=== PATIENT | male | born 1945 | race Caucasian/White ===

== ENCOUNTER → 2017-04-29 | Outpatient (CLI) | payer OTHER ==
[~2017-04-29] MED LIST: ACC/20 PO; ALLO300T2 PO; AMIT25TA19 PO; ATV/1 PO; AZEL30SP NAE; CARTIA XT 180 MG PO; HYDR25TA4 PO; INSU100I17 SC; INSUINJ SC; IRBE-43 PO; METO25TA3 PO; RAPAFLO 8 MG PO; ROSU20TA PO; TAMS0.4C59 PO
[2017-04-29 12:26] LABS: BASO % 0.8 %; BASO ABS # 0.04 K/uL (0-0.2); COMPLETE YES; EOS % 4.2 %; HEMATOCRIT 42.5 % (42-52); IG% 0.2 %; LYMPH % 18.8 %; MEAN CELL VOLUME 91.6 fL (80-100); MEAN CORPUSCULAR HEMOGLOBIN 32.3 pg (25-34); MEAN CORPUSCULAR HGB CONC 35.3 g/dl (32-36); MEAN PLATELET VOLUME 9.7 fL (7.4-10.4); MONO % 11.3 %; NEUT % 64.7 %; PLATELET COUNT 193 K/uL (130-400); RED BLOOD COUNT 4.64 M/uL (4.7-6.1); WHITE BLOOD COUNT 4.78 K/uL (4.8-10.8)
[2017-04-29 13:21] LABS: ESTIMATED AVERAGE GLUCOSE 120 mg/dl; HA1C FLAG Normal (Normal)
[2017-04-29 13:27] LABS: ALT/SGPT 37 U/L (12-78); AST/SGOT 31 U/L (15-37); BLOOD UREA NITROGEN 15 mg/dl (7-18); BUN/CREATININE RATIO 19.3 (10-20); CARBON DIOXIDE 27 mmol/L (21-32); CHLORIDE 96 mmol/L (98-107); CHOLESTEROL 153 mg/dl (0-200); CREATININE 0.76 mg/dl (0.60-1.40); GLUCOSE 132 mg/dl (70-99); SODIUM 133 mmol/L (136-145); TRIGLYCERIDES 149 mg/dl (0-150); VERY LOW DENSITY LIPOPROT CALC 30 mg/dl
[2017-04-29 13:34] LABS: CALCIUM 10.1 mg/dl (8.5-10.1); CHOLESTEROL/HDL RATIO 3.6; HDL CHOLESTEROL 42 mg/dl; LDL CHOLESTEROL CALCULATED 81 mg/dl
[2017-04-29 15:06] LABS: MANUAL MICROSCOPIC REQUIRED? NO; REVIEW REQ? NO; URINE APPEARANCE CLEAR (CLEAR); URINE BILIRUBIN NEG (NEG); URINE COLOR YELLOW; URINE EPITHELIAL CELL AUTO 0-5 /lpf (0-5); URINE NITRITE NEG (NEG); URINE SPECIFIC GRAVITY 1.017 (1.000-1.030); UROBILINOGEN NEG (NEG)
[2017-04-29 15:43] LABS: RATIO 406.7 mcg/mg (0-30.0)
--- NOTE | 2017-05-05 12:40 | CODING QUERY MEDICAL NECESSITY ---
SUPPORTING DIAGNOSIS NEEDED Dr. Dorsey, A supporting diagnosis is required for the test/procedure performed on this patient in order for us to be reimbursed by the patient's insurance. Please provide a supporting diagnosis for the following test/procedure listed below next to the test name along with your signature. *If there is no additional diagnosis for this patient that would support the following test/procedure please document that below next to the test/procedure. Test(s)/Procedure(s) that require a supporting diagnosis: * [id number] GLYCATED HEMOGLOBIN DIAGNOSIS: DATE OF SERVICE: 04/29/17 Provider Signature: Date: Thank you Reyes Javier [facility] Information Management Once completed, please kindly fax back to [phone] For questions please call [phone]
== END | disposition home or self-care (01) ==
LOC: C.LAB1850 09:34
PROVIDERS: ATTEND Internal Medicine
DX: I10 Essential (primary) hypertension (principal); E11.9 Type 2 diabetes mellitus without complications

== ENCOUNTER → 2017-07-30 | Outpatient (CLI) | payer OTHER ==
[2017-07-30 12:26] LABS: ESTIMATED AVERAGE GLUCOSE 126 mg/dl; HA1C FLAG Normal (Normal)
--- NOTE | 2017-08-11 11:40 | CODING QUERY MEDICAL NECESSITY ---
CQSUPPORTING DIAGNOSIS NEEDED A supporting diagnosis is required for the test/procedure performed on this patient in order for us to be reimbursed by the patient's insurance. Please provide a supporting diagnosis for the following test/procedure listed below next to the test name along with your signature. *If there is no additional diagnosis for this patient that would support the following test/procedure please document that below next to the test/procedure. Test(s)/Procedure(s) that require a supporting diagnosis: DOS 07/30/17 GLYCATED HEMOGLOBIN TEST Provider Signature: Date: Thank you Julia [facility] Information Management Once completed, please kindly fax back to [phone] For questions please call [phone]
== END | disposition home or self-care (01) ==
LOC: C.LAB1850 10:13
PROVIDERS: ATTEND Internal Medicine
DX: E78.5 Hyperlipidemia, unspecified (principal)

== ENCOUNTER → 2017-10-31 | Outpatient (CLI) | payer OTHER ==
[2017-10-31 09:38] LABS: BASO % 0.8 %; BASO ABS # 0.04 K/uL (0-0.2); COMPLETE YES; EOS % 2.8 %; HEMATOCRIT 43.3 % (42-52); IG% 0.2 %; LYMPH % 20.8 %; LYMPH ABS # 0.98 K/uL (1.2-3.4); MEAN CELL VOLUME 93.1 fL (80-100); MEAN CORPUSCULAR HEMOGLOBIN 31.4 pg (25-34); MEAN CORPUSCULAR HGB CONC 33.7 g/dl (32-36); MEAN PLATELET VOLUME 9.6 fL (7.4-10.4); MONO % 11.3 %; NEUT % 64.1 %; PLATELET COUNT 227 K/uL (130-400); RED BLOOD COUNT 4.65 M/uL (4.7-6.1); WHITE BLOOD COUNT 4.71 K/uL (4.8-10.8)
[2017-10-31 09:45] LABS: ALT/SGPT 42 U/L (12-78); AST/SGOT 25 U/L (15-37); BLOOD UREA NITROGEN 17 mg/dl (7-18); BUN/CREATININE RATIO 22.1 (10-20); CALCIUM 9.4 mg/dl (8.5-10.1); CARBON DIOXIDE 30 mmol/L (21-32); CHLORIDE 95 mmol/L (98-107); CREATININE 0.76 mg/dl (0.60-1.40); GLUCOSE 160 mg/dl (70-99); SODIUM 129 mmol/L (136-145)
[2017-10-31 09:50] LABS: CHOLESTEROL 151 mg/dl (0-200); CHOLESTEROL/HDL RATIO 3.9; HDL CHOLESTEROL 39 mg/dl; LDL CHOLESTEROL CALCULATED 58 mg/dl; TRIGLYCERIDES 271 mg/dl (0-150); VERY LOW DENSITY LIPOPROT CALC 54 mg/dl
[2017-10-31 10:00] LABS: ESTIMATED AVERAGE GLUCOSE 123 mg/dl; HA1C FLAG Normal (Normal)
[2017-10-31 10:05] LABS: CREATININE RANDOM URINE 78.2 mg/dl
== END | disposition home or self-care (01) ==
LOC: C.LAB1850 07:24
PROVIDERS: ATTEND Internal Medicine
DX: I10 Essential (primary) hypertension (principal)

== ENCOUNTER 2024-06-06 07:45 | Inpatient (IN) ==
--- NOTE | 2024-06-06 08:23 | Emergency Department Note ---
Impression & Plan Fall, Atrial fibrillation with rapid ventricular response, Acute UTI, Weakness, Closed compression fracture of L4 vertebra ED Provider Note Provider: Dirk Gary MD DATE OF SERVICE: 06/06/2024 CHIEF COMPLAINT: Fall, left hip and back pain HISTORY OF PRESENT ILLNESS: Patient is a 78-year-old gentleman past medical history of aortic stenosis, CHF, atrial fibrillation, bladder stones, lymphoma/MGRS presenting here today after a fall this morning. States he went up to use the bathroom and the handle of his walker fell off and he fell to the ground landing more in his left buttock. Laid on the ground for about an hour and a half until his woke and found him. Patient denies loss of conscious. Is on Eliquis. Did have a Glucerna and take his morning medicines and come here via ambulance for pain worsened in his left hip and back although he has have some chronic issues here. Denies significant headache or chest pain. Denies significant nausea. Maybe a little bit of left lower abdominal pain when he touches the area. Denies significant injury to the right arm or the left lower leg. Denies significant arm injury. States he did feel little bit short of breath when the pain was bad. Has been feeling weak for approximate the past week. Denies any palpitations or chest pain. PAST MEDICAL HISTORY: As noted above MEDICATIONS: Reviewed home medications SOCIAL HISTORY: PHYSICAL EXAM: GENERAL: alert and oriented in no acute distress on stretcher Head: Atraumatic with a little bit of slight erythema surrounding the left eye. EYES: No injection, discharge or icterus. PERRL, EOMI. NECK: Trachea midline. Supple without significant midline tenderness ENT: Mucous membranes pink and moist. LUNGS: Airway patent. No retractions. Breath sounds clear with good air entry bilaterally. HEART: Tachycardic irregular regular rate and rhythm. No chest wall tenderness ABDOMEN: Soft without guarding with some mild tenderness to the left lower quadrant and radiation of the left flank. SKIN: Acyanotic, warm, dry, without rashes EXTREMITIES: Trace to 1+ bilateral lower extremity edema without significant wounds. Some healing contusions and old abrasions on the upper arms bilaterally. Able to move his extremities fairly fully though little bit of pain with full flexion of the left hip. NEUROLOGICAL: Moves all extremities no aphasia. No facial droop or slurred speech. Normal strength and tone in the extremities. Sensation to gross touch normal. EK from atrial fibrillation with rapid ventricular response. Some lateral T wave inversions with a QTc of 468. No clear acute ST segment elevation or significant ST depression with some artifact. CONTINUOUS CARDIAC MONITORING: was ordered and showed a heart rate of 100s-150s bpm in atrial fibrillation later with A-fib and occasional PVCs 70s to 90s GCS 15. Patient's laboratory studies and imaging reviewed. Differential includes Fracture, dislocation, contusion, intra-abdominal, pneumothorax, intrathoracic, intracranial, neurologic, compartment syndrome, rhabdomyolysis, infectious etiology, cardiac etiology, as well as other pathologies. IMPRESSION/MEDICAL DECISION MAKING: Patient seen with suffered a mechanical type fall today. No LOC but on Eliquis. Having some pain worsened to the left hip and lower quadrant and back region but has some chronic here. History of bladder stones reported but denies significant urinary issues. Week of generalized weakness may have contributed somewhat. In rapid A-fib but did take his morning medicines include metoprolol. Was previously longtime on Cardizem but stopped this recently. In review of prior PCP and nephrology notes it appears the patient has been losing weight for some time. Given the fact he was on the floor CK was checked to exclude rhabdomyolysis. No concerning findings at this time for compartment syndrome on exam. Doubt dislocation. Given the anticoagulation CT scans of the head, cervical spine, chest abdomen pelvis were evaluated to look for occult bleeding or bony injury. Given the fairly good range of motion he has of the hip I doubt fracture here. Blood work returns with an elevated lactate at 3.4 and 500 cc of IV fluid was given for some hydration with some questionable hypertension although the blood pressure drops having a hard time with his A-fib obtaining a value. My blood pressure was 122 over palp. Cautiously given this amount of fluid but trying to avoid significant fluid boluses given his heart failure history. Received a gram of magnesium to help with heart rate control with his A-fib which this along with some pain control with fentanyl was effective in improving heart rates generally. Chest x-ray with a small unchanged left pleural effusion per radiology. Mild leukocytosis 12 is noted. Cultures ordered. CTs per radiology of the without obvious acute intracranial abnormality or cervical spine injury. CT chest per radiology compared to prior from 10 days ago with small right and moderate left pleural effusion with some body wall edema. No traumatic injuries are noted in the report. CT abdomen pelvis does show an acute to subacute L4 compression fracture although this was previously noted on the CT on May 27. No obvious significant intra-abdominal bleeding is noted or acute injury. No new lymphadenopathy is noted on imaging reports. Report indicates no retroperitoneal hematoma. Additional blood work returns with hyponatremia 128 which seems fairly chronic as well as stable creatinine of 0.5. No evidence of significant acute renal dysfunction and a normal CK lowering suspicion for rhabdomyolysis. Troponin of 34.5 without priors for comparison unsure if this is chronic or new. Could be a little demand from tachycardia. Leukocytosis 12.4 as noted and blood cultures were added. Does have history of bladder stones well that could be at play as far as a possible infectious source. Ordaz catheter placed reviewed prior microbiology from the urine. Given a dose of Zosyn. Discussed with patient and family findings. Blood pressure cuff appears to been on the wrong setting and blood pressures improved upon appropriate adult settings being used. He is too weak to ambulate and suffered a fall today and given his discomfort as well as concerns for infection he was agreeable to stay in the hospital and hospitalist team was contacted. Repeat troponin stable like this more chronic. Procalcitonin returns undetectably low lower suspicion for systemic sepsis some do question if this could be more related to just heart failure. DIAGNOSIS: Fall, A-fib RVR, L4 compression fracture, acute UTI, weakness DISPOSITION: Hospitalist will evaluate Patient was agreeable with this plan. Critical Care I have personally spent 65 minutes of critical care time in the direct management of this patient. This includes bedside care, interpretation of diagnostic studies, and testing, discussion with consultants, patient, and family members, and other required patient management activities. These 65 minutes is in excess of all separately billable procedures. 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 large B cell lymphoma in remission s/p RCHOP 2019 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-sided sciatica Pain of left sacroiliac joint Scoliosis Back pain 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 Hematuria, gross Permanent atrial fibrillation Encounter for pre-operative examination Anxiety Bladder stones H/O prostate cancer S/p brachytherapy Acquired deviated nasal septum BPH (benign prostatic hyperplasia) Diabetes mellitus Well controlled and stable Disc degeneration, lumbar Dyslipidemia Hearing loss Hypertension Hypertrophy of nasal turbinates Idiopathic gout Increased urinary frequency Insomnia Nocturia Nonocclusive coronary atherosclerosis of [place] coronary artery Obstructive sleep apnea Organic impotence Palpitations Premature ventricular contractions Proteinuria Slowing of urinary stream Medical History (Updated 06/06/24 @ 12:05 by Dirk Gary M.D.) Scoliosis PVCs (premature ventricular contractions) hx-f/u dr. 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) Follows with [facility] Chronic combined systolic and diastolic CHF (congestive heart failure) EF 34% on 05/23/20 nuclear stress test EF 45-50% on 06/23/20 ECHO EF 35-40% February 2024 per 03/2024 cardio records Nonsustained paroxysmal ventricular tachycardia Dec 2019 per [facility] records - no recurrence Insomnia Hx of gout Hypertension History of prostate cancer dx 2003, S/p brachytherapy Dyslipidemia Disc degeneration, lumbar Diffuse large B cell lymphoma in remission s/p RCHOP 2018 Diabetes mellitus BPH (benign prostatic hyperplasia) History of atrial fibrillation currently on eliquis; f/u dr. zaarte Aortic stenosis Mild to moderate per 04/16/24 cardio records Anxiety Bladder stones Poor historian now doing interviews Hearing deficit hearing aids bilat. History of anesthesia reaction WOKE UP VIOLENT AFTER LAST PROCEDURE (PROSTATE SEEDS) PT CAN'T RECALL SPECIFIC DETAILS BUT WAS TOLD THIS Chronic back pain Sleep apnea has had 2 conflicting sleep studies, most recent stated "he does not have" Surgical History History of urologic surgery cystolithopaxy History of cardiac cath 2018, fatigue/tiredness, [facility] in [place], no stents; f/u dr. zarate History of arthroscopy right knee History of colonoscopy History of tooth extraction History of tonsillectomy Family History Father Diabetes Myocardial infarction Denies family history of Ovarian cancer Prostate cancer Breast cancer Colorectal cancer Social History Smoking Status: Never smoker Second Hand Exposure: Yes (hx as child); Do You Dip or Chew Tobacco: No; Hx Alcohol Use: No Hx Substance Use: No Preferred Language: Spanish Communication Ability: Effective Relays Draftsperson Required: No Beliefs That Will Affect Care: None marital status: Current Living Situation: Spouse current occupational status: retired Feels Safe at Home: Yes Childhood Exposure to Second-Hand Smoke: No Dental Care, Regularly: Yes Physical Activity Frequency: 1-2 Times per Week Seatbelt Use: always Sunscreen Use: Yes Assistive Devices: Hearing Aid - Bilateral and Walker Allergies Allergies Allergy/AdvReac Type Severity Reaction Status Date / Time NSAIDS (Non-Steroidal AdvReac Intermediate Interacts Verified 05/31/24 13:43 Anti-Inflamma with other meds Home Meds Home Medications Medication Instructions Recorded Confirmed insulin syr/ndl U100 half juliocesar 0.3 #100 ea 06/15/19 05/27/24 mL 31 gauge x 5/16" (BD Insulin Syringe Ultra-Fine (half unit)) pen needle, diabetic 31 gauge x #30 ea 06/15/19 05/27/24 5/16" (BD Ultra-Fine Short Pen Needle) dapagliflozin propanediol 10 mg 10 mg PO QAM 05/09/22 06/06/24 tablet (Farxiga) solifenacin 10 mg tablet 10 mg PO QAM 05/09/22 06/06/24 irbesartan 150 mg tablet (Avapro) 150 mg PO HS 11/05/23 06/06/24 metformin 1,000 mg tablet 1,000 mg PO BID 03/31/24 06/06/24 rosuvastatin 40 mg tablet (Crestor) 40 mg PO QPM 04/29/24 06/06/24 silodosin 8 mg capsule 8 mg PO QAM Urinary Retention 04/29/24 06/06/24 blood sugar diagnostic (FreeStyle 06/06/24 Test strips) Previous Rx's Medication Instructions Recorded apixaban 5 mg tablet (Eliquis) 5 mg PO BID #180 tabs 05/23/21 lorazepam 1 mg tablet 1 mg PO BID PRN Anxiety #60 tabs 05/23/22 allopurinol 300 mg tablet 300 mg PO QAM #90 tabs 03/06/23 furosemide 40 mg tablet 40 mg PO Q OTHER DAY PRN edema #45 11/05/23 tabs oxycodone 5 mg tablet 5 mg PO DAILY PRN severe pain #30 05/12/24 tabs metoprolol succinate 50 mg 100 mg (2 x 50 mg) PO DAILY #90 05/31/24 tablet,extended release 24 hr tabs Results & Data (ED) Vital Signs Vital Signs - 24 hr 06/06/24 07:50 06/06/24 08:00 06/06/24 08:15 Temperature 36.7 C Temperature Source Oral Pulse Rate 110 H 119 H Pulse Rate [Apical] Respiratory Rate 18 Respiratory Effort / Characteristics Non-Labored Respiratory Depth Normal Respiratory Pattern Regular Blood Pressure [Left Arm] 80/64 L Blood Pressure Mean [Left Arm] 69 Pulse Oximetry 98 Oxygen Delivery Method Room Air Sepsis Recent Fever Within 48 Hours No Sepsis New/Unexplained Change in Mental Status No Sepsis Action Taken by Nursing No Action Required 06/06/24 11:02 Temperature Temperature Source Pulse Rate Pulse Rate [Apical] 115 H Respiratory Rate 18 Respiratory Effort / Characteristics Non-Labored Respiratory Depth Normal Respiratory Pattern Regular Blood Pressure [Left Arm] 118/100 Blood Pressure Mean [Left Arm] 106 Pulse Oximetry 95 Oxygen Delivery Method Room Air Sepsis Recent Fever Within 48 Hours Sepsis New/Unexplained Change in Mental Status Sepsis Action Taken by Nursing Laboratory Data 06/06/24 08:40 06/06/24 08:40 Lab Results 06/06/24 06/06/24 06/06/24 Range/Units 08:32 08:40 09:45 WBC 12.46 H (4.8-10.8) K/ul RBC 4.93 (4.70-6.10) M/uL Hgb 16.6 (14.0-18.0) g/dl POC Hgb 18.0 (14.0-18.0) g/dl Hct 48.9 (42.0-52.0) % POC Hct 53 H (42-52) % MCV 99.2 (80.0-100.0) fL MCH 33.7 (25.0-34.0) pg MCHC 33.9 (32.0-36.0) g/dL RDW Std Deviation 52.9 H (36.4-46.3) fL RDW Coeff of Golden 14.6 H (11.5-14.5) % Plt Count 224 (130-400) K/uL MPV 9.9 (9.4-12.4) fL Immature Gran % (Auto) 0.6 % Neut % (Auto) 90.4 % Lymph % (Auto) 4.1 % [place] % (Auto) 4.6 % Eos % (Auto) 0.1 % Baso % (Auto) 0.2 % Neut # (Auto) 11.28 H (1.40-6.50) K/uL Lymph # (Auto) 0.51 L (1.20-3.40) K/uL [place] # (Auto) 0.57 (0.11-0.59) K/uL Eos # (Auto) 0.01 (0.00-0.50) K/uL Baso # (Auto) 0.02 (0.00-0.20) K/uL Immature Gran # (Auto) 0.07 (0.01-0.20) K/uL RBC Morphology Unremarkable PT (9.0-12.0) Seconds INR (0.9-1.1) POC Sodium 130 L (135-144) mmol/L Sodium 128 L (136-145) mmol/L POC Potassium 4.2 (3.3-5.0) mmol/L Potassium 4.3 (3.5-5.1) mmol/L POC Chloride 96 L (101-112) mmol/L Chloride 97 L (98-107) mmol/L Carbon Dioxide 22 (21-32) mmol/L POC Total CO2 23 L (24-31) mmol/L Anion Gap 9 (3-11) POC Anion Gap 17.0 (16-25) mmol/L POC BUN 19 H (7-18) mg/dl BUN 18 (6-23) mg/dl Creatinine 0.58 L (0.6-1.4) mg/dl POC Creatinine 0.6 (0.6-1.3) mg/dl Est Cr Clr Drug Dosing 137.5 ml/min Est GFR ( Amer) 112.4 ml/min Est GFR (Non-Af Amer) 97.0 ml/min BUN/Creatinine Ratio 31.0 H (10-20) Glucose 216 H (70-99(Fasting)) mg/dl POC Glucose (other) 211 H (70-99) mg/dl Lactate 3.4 H* (0.4-2.0) mmol/L Calcium 9.7 (8.6-10.3) mg/dl POC Ioniz Calcium Toribio 1.22 (1.12-1.32) mmol/l Magnesium 1.7 (1.7-2.4) mg/dl Total Bilirubin 1.4 H (0.2-1.0) mg/dl AST 39 (13-39) U/L ALT 37 (7-52) U/L Alkaline Phosphatase 152 H (34-104) U/L Total Creatine Kinase 49 (30-223) U/L Troponin I High Sens 34.5 H (0-20) pg/ml Total Protein 6.4 (6.0-8.3) gm/dl Albumin 3.7 (3.4-5.0) gm/dl Globulin 2.7 (2.5-4.0) gm/dl Albumin/Globulin Ratio 1.4 (0.9-2) Procalcitonin Cancelled < 0.02 Urine Color Urine Appearance (Clear) Urine pH (4.5-7.5) Ur Specific Organ (1.000-1.030) Urine Protein (Negative) Urine Glucose (UA) (Negative) Urine Ketones (Negative) Urine Blood (Negative) Urine Nitrite (Negative) Urine Bilirubin (Negative) Urine Urobilinogen (Negative) Ur Leukocyte Esterase (Negative) Urine WBC (Auto) (0-5) /hpf Urine RBC (Auto) (0-2) /hpf U Hyaline Cast (Auto) (0-2) /lpf U Epithel Cells (Auto) (0-2) /hpf Urine Bacteria (Auto) (None Seen) 06/06/24 06/06/24 06/06/24 Range/Units 09:46 09:49 10:49 WBC (4.8-10.8) K/ul RBC (4.70-6.10) M/uL Hgb (14.0-18.0) g/dl POC Hgb (14.0-18.0) g/dl Hct (42.0-52.0) % POC Hct (42-52) % MCV (80.0-100.0) fL MCH (25.0-34.0) pg MCHC (32.0-36.0) g/dL RDW Std Deviation (36.4-46.3) fL RDW Coeff of Golden (11.5-14.5) % Plt Count (130-400) K/uL MPV (9.4-12.4) fL Immature Gran % (Auto) % Neut % (Auto) % Lymph % (Auto) % [place] % (Auto) % Eos % (Auto) % Baso % (Auto) % Neut # (Auto) (1.40-6.50) K/uL Lymph # (Auto) (1.20-3.40) K/uL [place] # (Auto) (0.11-0.59) K/uL Eos # (Auto) (0.00-0.50) K/uL Baso # (Auto) (0.00-0.20) K/uL Immature Gran # (Auto) (0.01-0.20) K/uL RBC Morphology PT 14.4 H (9.0-12.0) Seconds INR 1.4 H (0.9-1.1) POC Sodium (135-144) mmol/L Sodium (136-145) mmol/L POC Potassium (3.3-5.0) mmol/L Potassium (3.5-5.1) mmol/L POC Chloride (101-112) mmol/L Chloride (98-107) mmol/L Carbon Dioxide (21-32) mmol/L POC Total CO2 (24-31) mmol/L Anion Gap (3-11) POC Anion Gap (16-25) mmol/L POC BUN (7-18) mg/dl BUN (6-23) mg/dl Creatinine (0.6-1.4) mg/dl POC Creatinine (0.6-1.3) mg/dl Est Cr Clr Drug Dosing ml/min Est GFR ( Amer) ml/min Est GFR (Non-Af Amer) ml/min BUN/Creatinine Ratio (10-20) Glucose (70-99(Fasting)) mg/dl POC Glucose (other) (70-99) mg/dl Lactate (0.4-2.0) mmol/L Calcium (8.6-10.3) mg/dl POC Ioniz Calcium Toribio (1.12-1.32) mmol/l Magnesium (1.7-2.4) mg/dl Total Bilirubin (0.2-1.0) mg/dl AST (13-39) U/L ALT (7-52) U/L Alkaline Phosphatase (34-104) U/L Total Creatine Kinase (30-223) U/L Troponin I High Sens 34.5 H (0-20) pg/ml Total Protein (6.0-8.3) gm/dl Albumin (3.4-5.0) gm/dl Globulin (2.5-4.0) gm/dl Albumin/Globulin Ratio (0.9-2) Procalcitonin Urine Color Yellow Urine Appearance Cloudy A (Clear) Urine pH 6.0 (4.5-7.5) Ur Specific Organ 1.041 H (1.000-1.030) Urine Protein 2+ H (Negative) Urine Glucose (UA) 3+ H (Negative) Urine Ketones Negative (Negative) Urine Blood 3+ H (Negative) Urine Nitrite Negative (Negative) Urine Bilirubin Negative (Negative) Urine Urobilinogen Negative (Negative) Ur Leukocyte Esterase 1+ H (Negative) Urine WBC (Auto) >50 H (0-5) /hpf Urine RBC (Auto) >20 H (0-2) /hpf U Hyaline Cast (Auto) 3-5 H (0-2) /lpf U Epithel Cells (Auto) 0-2 (0-2) /hpf Urine Bacteria (Auto) None Seen (None Seen) Administered Medications Discontinued Medications Fentanyl Citrate (Fentanyl Citrate Pf 100 Mcg/2 Ml Vial) 25 mcg IV NOW STA Stop: 06/06/24 08:24 Last Admin: 06/06/24 08:27 Dose: 25 mcg Documented By: BILL Fentanyl Citrate (Fentanyl Citrate Pf 100 Mcg/2 Ml Vial) 25 mcg IV NOW STA Stop: 06/06/24 09:54 Last Admin: 06/06/24 10:21 Dose: 25 mcg Documented By: BILL Sodium Chloride (Nss) 500 mls @ 999 mls/hr IV .Q31M [facility] Stop: 06/06/24 09:00 Last Infusion: 06/06/24 10:07 Dose: Infused Documented By: Admin: 06/06/24 08:27 Dose: 999 mls/hr Documented By: BILL Magnesium Sulfate/Dextrose (Magnesium Sulfate / D5w) 1 gm in 100 mls @ 400 mls/hr IV Q15M [facility] Stop: 06/06/24 08:37 Last Infusion: 06/06/24 08:47 Dose: Infused Documented By: Admin: 06/06/24 08:27 Dose: 400 mls/hr Documented By: BILL Ioversol (Optiray 320 100ml) 94 ml IV ONCE ONE Stop: 06/06/24 08:50 Last Admin: 06/06/24 08:50 Dose: 94 ml Documented By: ARTUR Imaging Data Radiologist's Impression: Chest X-Ray 06/06/24 08:18 XR chest 1V portable HISTORY: fall, weak COMPARISON: Chest 04/23/2024. Chest CT 05/27/2024. FINDINGS: The cardiac silhouette is mildly enlarged. No pneumothorax. There are old left-sided rib fractures. Small left pleural effusion and left basilar densities persist. No new focal lung consolidations. No evidence for pulmonary edema. IMPRESSION: No change in the small left pleural effusion and left basilar densities. ACT 112: Negative or not required by law. Electronically signed by: Mando Cortez M.D. 06/06/2024 8:50 AM Abdomen/Pelvis CT 06/06/24 08:[address] WITH IV CONTRAST CT DOSE: HISTORY: fall, weak, eliquis, L hip abd back pain TECHNIQUE: Multiaxial CT images of the abdomen and pelvis were performed following the use of intravenous contrast. A dose lowering technique was utilized adhering to the principles of ALARA. COMPARISON STUDY: Abdomen and pelvis CT 05/27/2024. FINDINGS: Small right and moderate left pleural effusions have increased in size and are better appreciated on the same day chest CT. The heart remains enlarged. No new no pneumoperitoneum. No pneumatosis. There is an acute to subacute mild superior endplate compression fracture at L4 demonstrating up to 10% loss of height. This was present on the prior study. This accounts for the mild paravertebral edema at this level. There are old bilateral rib fractures again noted. Diffuse body wall edema has progressed. Cirrhotic liver again noted. Cholelithiasis. The spleen is normal in size. The adrenal glands and pancreas are unremarkable. Scattered subcentimeter bilateral renal hypodense lesions again noted. These are technically too small to characterize but remain stable and therefore favors cysts. Left-sided nephrolithiasis. No ureteral stones. No hydronephrosis. There is a 4 mm stone within the bladder. No bladder wall thickening. Multiple brachytherapy seeds again noted within the prostate gland. Trace ascites is present. The main portal vein is patent. Calcified plaque within the abdominal aorta which measures up to 3.3 cm in diameter. This remains unchanged. Mild retroperitoneal lymphadenopathy remains stable. No new or progressive lymphadenopathy identified. Moderate perinephric edema again noted. There is mild diffuse mesenteric edema. Colonic diverticulosis. No evidence for acute diverticulitis. No bowel wall thickening or obstruction. Normal appendix. No retroperitoneal hematoma. IMPRESSION: 1. Increase in size in the small right and moderate left pleural effusions. 2. There is an acute to subacute mild superior endplate compression fracture at L4. This was present on the prior study. 3. Otherwise, no acute process within the abdomen or pelvis. 4. Diffuse body wall edema has progressed. 5. Cirrhotic liver again noted. 6. Cholelithiasis. 7. Left-sided nephrolithiasis. 8. A small bladder stone is new from the prior study. 9. Stable mild retroperitoneal lymphadenopathy. 10. Additional findings as described above. ACT 112: Negative or not required by law. Electronically signed by: Mando Cortez M.D. 06/06/2024 9:[address] 06/06/24 08:[address] DOSE: 3401.22 mGy.cm HISTORY: fall, weak, eliquis TECHNIQUE: Multiaxial CT images of the cervical spine were performed and reformatted in the sagittal and coronal plane without the use of contrast. A dose lowering technique was utilized adhering to the principles of ALARA. COMPARISON: None. FINDINGS: No fractures. No subluxation. Prevertebral soft tissues and the C1-C2 interval are intact. No pneumothorax. IMPRESSION: No fractures within the cervical spine. ACT 112: Negative or not required by law. Electronically signed by: Mando Cortez M.D. 06/06/2024 9:[address] 06/06/24 08:[address] WITH CONTRAST CT DOSE: HISTORY: fall, weak, eliquis TECHNIQUE: Multiaxial CT images of the chest were performed following the intravenous administration of contrast. A dose lowering technique was utilized adhering to the principles of ALARA. COMPARISON: Chest CT 05/27/2024. FINDINGS: Moderate body wall edema has progressed. The abdominal structures will be reported separately. Increase in size in the now small right and moderate left pleural effusions. No pericardial effusion. The heart remains mildly enlarged. No mediastinal or hilar lymphadenopathy. Normal esophagus. Mild calcified plaque within the normal caliber thoracic aorta. No evidence for an aortic dissection. Severe coronary artery calcifications are again noted. The central pulmonary arteries are patent. There are old bilateral rib fractures. No acute fractures within the chest. The central airways are patent. No pneumothorax. Mild dependent changes seen within the lung bases. No new focal lung consolidations to suggest a pneumonia. Cholelithiasis and left-sided nephrolithiasis again noted. Chronic compression deformity at L1 again noted. There is a new 9 mm nodular density within the right upper lobe on image 89. This favors a small focus of inflammatory/infectious change. IMPRESSION: 1. Increase in size in the now small right and moderate left pleural effusions. 2. Diffuse body wall edema has also progressed. 3. Stable cardiomegaly. 4. There is a new 9 mm nodular density within the right upper lobe. This favors a small focus of inflammatory/infectious change. 5. No acute traumatic process within the chest. 6. The abdominal structures will be reported separately. ACT 112: Negative or not required by law. Electronically signed by: Mando Cortez M.D. 06/06/2024 9:[address] 06/06/24 08:[address] DOSE: HISTORY: fall, weak, eliquis TECHNIQUE: Multiaxial CT images of the head were performed without the use of intravenous contrast. Automated exposure control was utilized for this study. A dose lowering technique was utilized adhering to the principles of ALARA. Comparison: Head CT 11/12/2012. Findings: The paranasal sinuses and mastoid air cells are clear. The calvarium and skull base are intact. There is no mass, hematoma, midline shift, acute infarct. White matter hypodensity is nonspecific but suggestive of microvascular ischemic change. The ventricles and sulci demonstrate mild age-related involutional changes. Motion artifact. Impression: Motion artifact. No definite acute intracranial abnormality. ACT 112: Negative or not required by law. Electronically signed by: Mando Cortez M.D. 06/06/2024 9:12 AM Discharge Plan Visit Data Chief Complaint: Fall Stated Complaint: FALL, BACK & HIP PAIN ED Provider: Dirk Gary Discharge Problem: Fall, Atrial fibrillation with rapid ventricular response, Acute UTI, Weakness, Closed compression fracture of L4 vertebra Patient Disposition: Being Evaluated by Hospitalist Forms Stand Alone Forms: My [facility] Prescriptions Prescriptions: No Action Eliquis 5 mg tablet 5 mg PO BID Qty: 180 3RF lorazepam 1 mg tablet 1 mg PO BID PRN (Reason: Anxiety) Qty: 60 0RF allopurinol 300 mg tablet 300 mg PO QAM Qty: 90 1RF (DME) pen needle, diabetic [BD Ultra-Fine Short Pen Needle] 31 gauge x 5/16" needle See Dose Instructions .ROUTE .MEDSUPPLY Qty: 30 Rx Instructions: As directed (DME) BD Insulin Syringe (half unit) 0.3 mL 31 gauge x 5/16" syringe See Dose Instructions .ROUTE .MEDSUPPLY Qty: 100 Rx Instructions: As directed irbesartan [Avapro] 150 mg tablet 150 mg PO HS Farxiga 10 mg tablet 10 mg PO QAM Hold Instructions: Home Medication placed on hold at Doctor's office solifenacin 10 mg tablet 10 mg PO QAM oxycodone 5 mg tablet 5 mg PO DAILY PRN (Reason: severe pain) Qty: 30 0RF furosemide 40 mg tablet 40 mg PO Q OTHER DAY PRN (Reason: edema) Qty: 45 3RF metformin 1,000 mg tablet 1,000 mg PO BID metoprolol succinate 50 mg tablet extended release 24 hr 100 mg PO DAILY Qty: 90 3RF Patient Comments: as of 04/29/24, pt has not started medication yet rosuvastatin [Crestor] 40 mg tablet 40 mg PO QPM silodosin 8 mg capsule 8 mg PO QAM (DME) FreeStyle Test Strip MISCELLANEOUS Rx Instructions: USE 1 STRIP TO CHECK GLUCOSE 8 TIMES DAILY Referrals Referrals: Virginia Treviño MD [Primary Care Provider] - Discharge Problem: Fall Qualifiers: Encounter type: initial encounter Qualified Code(s): W19.XXXA - Unspecified fall, initial encounter
[2024-06-06] MEDS: MAGNESIUM SULFATE / D5W 1 GM/100 ML BAG IV SCH (08:27)
[2024-06-06] MEDS: fentaNYL citrate PF 100 MCG/2 ML VIAL IV STA ×2 (08:27→10:21)
[2024-06-06] MEDS: SODIUM CHLORIDE 0.9% 500 ML IV SCH (08:27)
[2024-06-06 08:45] LABS: iSTAT Creatinine 0.6 mg/dl (0.6-1.3); iSTAT Ionized Calcium 1.22 mmol/l (1.12-1.32); iSTAT Potassium 4.2 mmol/L (3.3-5.0)
[2024-06-06] MEDS: OPTIRAY 320 100ml IV ONE (08:50)
--- NOTE | 2024-06-06 08:51 | XRay Report ---
XR chest 1V portable HISTORY: fall, weak COMPARISON: Chest 04/23/2024. Chest CT 05/27/2024. FINDINGS: The cardiac silhouette is mildly enlarged. No pneumothorax. There are old left-sided rib fr actures. Small left pleural effusion and left basilar densities persist. No new focal lung consolidat ions. No evidence for pulmonary edema. IMPRESSION: No change in the small left pleural effusion and left basilar densities. ACT 112: Negative or not required by law. Electronically signed by: Mando Cortez M.D. 06/06/2024 8:50 AM
[2024-06-06 09:05] LABS: Hematocrit (blood only) 48.9 % (42.0-52.0); Hemoglobin 16.6 g/dl (14.0-18.0); Mean Corpuscular Hemoglobin 33.7 pg (25.0-34.0); Mean Corpuscular Hgb Conc 33.9 g/dL (32.0-36.0); Mean Corpuscular Volume 99.2 fL (80.0-100.0); Mean Platelet Volume 9.9 fL (9.4-12.4); Platelet Count 224 K/uL (130-400); RDW Coefficient of Variation 14.6 % (11.5-14.5); RDW Standard Deviation 52.9 fL (36.4-46.3); Red Blood Count 4.93 M/uL (4.70-6.10); White Blood Count 12.46 K/ul (4.8-10.8)
[2024-06-06 09:13] LABS: Albumin Level 3.7 gm/dl (3.4-5.0); Bilirubin,Total 1.4 mg/dl (0.2-1.0); Calcium 9.7 mg/dl (8.6-10.3); Creatinine Clr Calc Pharmacy 137.5 ml/min; Est GFR (African American) 112.4 ml/min; Magnesium 1.7 mg/dl (1.7-2.4); Potassium 4.3 mmol/L (3.5-5.1)
--- NOTE | 2024-06-06 09:13 | CT Scan Report ---
HEAD CT NONCONTRAST CT DOSE: HISTORY: fall, weak, eliquis TECHNIQUE: Multiaxial CT images of the head were performed without the use of intravenous contrast. A utomated exposure control was utilized for this study. A dose lowering technique was utilized adheri ng to the principles of ALARA. Comparison: Head CT 11/12/2012. Findings: The paranasal sinuses and mastoid air cells are clear. The calvarium and skull base are int act. There is no mass, hematoma, midline shift, acute infarct. White matter hypodensity is nonspecifi c but suggestive of microvascular ischemic change. The ventricles and sulci demonstrate mild age-rela jerry involutional changes. Motion artifact. Impression: Motion artifact. No definite acute intracranial abnormality. ACT 112: Negative or not required by law. Electronically signed by: Mando Cortez M.D. 06/06/2024 9:12 AM
[2024-06-06 09:19] LABS: Troponin I High Sensitivity 34.5 pg/ml (0-20)
--- NOTE | 2024-06-06 09:21 | CT Scan Report ---
CERVICAL SPINE CT CT DOSE: 3401.22 mGy.cm HISTORY: fall, weak, eliquis TECHNIQUE: Multiaxial CT images of the cervical spine were performed and reformatted in the sagittal and coronal plane without the use of contrast. A dose lowering technique was utilized adhering to th e principles of ALARA. COMPARISON: None. FINDINGS: No fractures. No subluxation. Prevertebral soft tissues and the C1-C2 interval are intact. No pneumothorax. IMPRESSION: No fractures within the cervical spine. ACT 112: Negative or not required by law. Electronically signed by: Mando Cortez M.D. 06/06/2024 9:18 AM
--- NOTE | 2024-06-06 09:28 | CT Scan Report ---
CHEST CT WITH CONTRAST CT DOSE: HISTORY: fall, weak, eliquis TECHNIQUE: Multiaxial CT images of the chest were performed following the intravenous administration of contrast. A dose lowering technique was utilized adhering to the principles of ALARA. COMPARISON: Chest CT 05/27/2024. FINDINGS: Moderate body wall edema has progressed. The abdominal structures will be reported separate ly. Increase in size in the now small right and moderate left pleural effusions. No pericardial effus ion. The heart remains mildly enlarged. No mediastinal or hilar lymphadenopathy. Normal esophagus. Mi ld calcified plaque within the normal caliber thoracic aorta. No evidence for an aortic dissection. S evere coronary artery calcifications are again noted. The central pulmonary arteries are patent. Ther e are old bilateral rib fractures. No acute fractures within the chest. The central airways are paten t. No pneumothorax. Mild dependent changes seen within the lung bases. No new focal lung consolidatio ns to suggest a pneumonia. Cholelithiasis and left-sided nephrolithiasis again noted. Chronic nik jen deformity at L1 again noted. There is a new 9 mm nodular density within the right upper lobe on image 89. This favors a small focus of inflammatory/infectious change. IMPRESSION: 1. Increase in size in the now small right and moderate left pleural effusions. 2. Diffuse body wall edema has also progressed. 3. Stable cardiomegaly. 4. There is a new 9 mm nodular density within the right upper lobe. This favors a small focus of infl ammatory/infectious change. 5. No acute traumatic process within the chest. 6. The abdominal structures will be reported separately. ACT 112: Negative or not required by law. Electronically signed by: Mando Cortez M.D. 06/06/2024 9:26 AM
[2024-06-06 09:36] LABS: Albumin Globulin Ratio 1.4 (0.9-2); Globulin 2.7 gm/dl (2.5-4.0); Total Protein 6.4 gm/dl (6.0-8.3)
--- NOTE | 2024-06-06 09:38 | CT Scan Report ---
ABDOMEN AND PELVIS CT WITH IV CONTRAST CT DOSE: HISTORY: fall, weak, eliquis, L hip abd back pain TECHNIQUE: Multiaxial CT images of the abdomen and pelvis were performed following the use of intrave nous contrast. A dose lowering technique was utilized adhering to the principles of ALARA. COMPARISON STUDY: Abdomen and pelvis CT 05/27/2024. FINDINGS: Small right and moderate left pleural effusions have increased in size and are better appre ciated on the same day chest CT. The heart remains enlarged. No new no pneumoperitoneum. No pneumatos is. There is an acute to subacute mild superior endplate compression fracture at L4 demonstrating up to 10% loss of height. This was present on the prior study. This accounts for the mild paravertebral edema at this level. There are old bilateral rib fractures again noted. Diffuse body wall edema has p rogressed. Cirrhotic liver again noted. Cholelithiasis. The spleen is normal in size. The adrenal gla nds and pancreas are unremarkable. Scattered subcentimeter bilateral renal hypodense lesions again no jerry. These are technically too small to characterize but remain stable and therefore favors cysts. Le ft-sided nephrolithiasis. No ureteral stones. No hydronephrosis. There is a 4 mm stone within the geovany dder. No bladder wall thickening. Multiple brachytherapy seeds again noted within the prostate gland. Trace ascites is present. The main portal vein is patent. Calcified plaque within the abdominal aort a which measures up to 3.3 cm in diameter. This remains unchanged. Mild retroperitoneal lymphadenopat hy remains stable. No new or progressive lymphadenopathy identified. Moderate perinephric edema again noted. There is mild diffuse mesenteric edema. Colonic diverticulosis. No evidence for acute diverti culitis. No bowel wall thickening or obstruction. Normal appendix. No retroperitoneal hematoma. IMPRESSION: 1. Increase in size in the small right and moderate left pleural effusions. 2. There is an acute to subacute mild superior endplate compression fracture at L4. This was present on the prior study. 3. Otherwise, no acute process within the abdomen or pelvis. 4. Diffuse body wall edema has progressed. 5. Cirrhotic liver again noted. 6. Cholelithiasis. 7. Left-sided nephrolithiasis. 8. A small bladder stone is new from the prior study. 9. Stable mild retroperitoneal lymphadenopathy. 10. Additional findings as described above. ACT 112: Negative or not required by law. Electronically signed by: Mando Cortez M.D. 06/06/2024 9:36 AM
[2024-06-06 10:06] LABS: Basophils # (auto) 0.02 K/uL (0.00-0.20); Basophils % (auto) 0.2 %; Eosinophils # (auto) 0.01 K/uL (0.00-0.50); Eosinophils % (auto) 0.1 %; Immature Granulocytes # (auto) 0.07 K/uL (0.01-0.20); Immature Granulocytes % (auto) 0.6 %; Lymphocytes # (auto) 0.51 K/uL (1.20-3.40); Lymphocytes % (auto) 4.1 %; Monocytes # (auto) 0.57 K/uL (0.11-0.59); Monocytes % (auto) 4.6 %; Neutrophils # (auto) 11.28 K/uL (1.40-6.50); Neutrophils % (auto) 90.4 %; RBC Morphology Unremarkable
[2024-06-06 10:39] LABS: INR 1.4 (0.9-1.1); Prothrombin Time 14.4 Seconds (9.0-12.0)
--- NOTE | 2024-06-06 10:45 | History & Physical Report ---
Date of Service June 06, 2024 Assessment & Plan (1) Fall: Plan: Patient sustained a ground-level fall on the morning of 06/06 No head strike; no LOC; on Eliquis Head and cervical spine CT without acute findings A/P CT revealed acute to subacute mild superior endplate compression fracture at L4, but this was present on a prior study Fall precautions Acetaminophen as needed for pain Oxycodone p.o. q6h as needed for breakthrough pain PT/OT evaluations appreciated Low impact mechanical fall without head injury [id number] risk 5 points (high) Will continue Eliquis as scheduled A.m. CBC, CMP, mag, PT/INR (2) Acute on chronic systolic heart failure: Plan: Most recent echocardiogram revealed LVEF 35-40% in February 2024 BNP ordered, pending Suspect volume overload is contributing to patient's overall picture Patient reports he only takes Lasix as needed Rinaldi placed in the ED; daily rinaldi cath care Will hold off on diuresis for now given soft BP, and start patient on Lasix 40 mg IV QAM 1500 mL fluid restriction Continue dapagliflozin Daily weights Strict I&O monitoring (3) Sepsis: Plan: Suspected urinary source Leukocytosis of 12.16 with neutrophil predominance Note: Patient was originally thought to be hypotensive on arrival at 80/64 However, patient's BP cuff was set to a "" setting and reassessment of blood pressure revealed normotensive at 118/100 Lactate elevated at 3.4-->2.4 Procalcitonin WNL Blood cultures ordered, pending IVF fluid bolus deferred in the setting of volume overload pleural effusions secondary to CHF Zosyn 4.5g IV q8h (4) Atrial fibrillation with RVR: Plan: EKG on arrival revealed atrial fibrillation with RVR at 118 bpm Continue Eliquis as scheduled Continue metoprolol Continuous telemetry monitoring (5) Hypertension: Plan: Continue metoprolol Hold irbesartan can provide additional room for diuresis as needed (6) Hematuria: Plan: Patient reports intermittent, gross hematuria History of recent bladder surgery 3 weeks ago Hgb 16.6 on arrival UA 3+ for blood on arrival While patient does report hematuria which is confirmed in UA, this was weighed against risk of stroke by holding Eliquis Continue Eliquis for now and monitor H&H levels intermittently (7) Type 2 diabetes mellitus: Plan: Last A1c at 7.2% on 05/10/2024 Hold metformin Continue dapagliflozin SSI; with target BSG range 110-140mg/dL, CF 40, carb ratio 10 T2DM diet BSG ACHS Adjust regimen as needed (8) Hyponatremia: Plan: Sodium 128 on arrival Suspect secondary to volume overload / dilution Diuresis (as above) Okay for low-sodium diet Recheck a.m. BMP (9) Pleural effusion: Plan: Chest CT revealed small right and moderate left pleural effusions on arrival Lasix (as above) (10) Acute UTI: Plan: Zosyn (as above) (11) Cirrhosis: (12) Elevated troponin: Plan Disposition: Admit to PCU telemetry Full code Heart healthy, T2DM, low-sodium diet (1500 mL fluid restriction) VTE PPx: Continue Eliquis History of Present Illness Chief Complaint: Fall Primary Care Provider: Virginia Treviño MD Servando is a 78-year-old male with PMH of MGRS, liver cirrhosis, aortic stenosis, atrial fibrillation (on apixaban), prostate cancer, dyslipidemia, HTN, idiopathic gout, YENIFER, and heart failure. He presented via EMS on 06/06 after sustaining a ground-level fall while ambulating with his walker. He reports that the handle came off his walker while he was ambulating and that he fell onto a carpet. No head strike. No LOC. This occurred around 4:30 AM. He was not dizzy prior to falling. He endorses left hip pain on arrival. This pain has been ongoing for an extended period of time, but may have been exacerbated by the fall. No recent injuries to the hips, back, head, or neck prior to fall. The pain in his left lower back is described as constant. No radiation down the legs. He rates it 7/10 at present, but 10/10 at worst. Exacerbated by movements. He has been taking 1 oxycodone daily (5 mg tablet) for the pain, however he was recently prescribed hydrocodone 325 by his oncologist on Friday. Patient took all his regular morning medications today; his (Bhavna) is at the bedside and helps to manage his medicine at home. She reports that he was recently taken off Cartia XL and placed on metoprolol due to his ejection fraction. Last echocardiogram in the spring 2023. Patient follows with Dr. Faria for cardiology. She also notes that they recently increased his metoprolol on Friday by doubling the dosage from 50 mg daily to 100 mg daily. Patient reports he has been taken off Cartia XL in the past, and does not usually do well with it. He notes that he takes Lasix as needed, but does not normally take it daily; he reports he might of taken 23 doses over the past week. No recent change in diet, but patient's reports he has been eating less. He reports he does watch his salt intake. He takes Eliquis for atrial fibrillation, and reports that he last took it this morning at 7 AM. Regarding weight changes, patient reports he lost around 50 pounds over the past year. He reports no weight fluctuation in the past week. No sick contacts. No supplemental oxygen at home. No CPAP at night. Patient had recent bladder surgery 3 weeks ago, and endorses intermittent hematuria since then. Patient is a former smoker; quit in 2014. No recent alcohol use. On initial arrival, it was reported that patient's BP was 80/64; however the cuff was set to "" settings and reassessment revealed BP 118/100. Patient is tachycardic around 115 bpm at time of admission; vitals otherwise stable. ED course: NSS 500 mL IV Fentanyl citrate 25 mcg IV x 2 Magnesium sulfate 1 g IV ROS: Patient endorses lower back pain, ambulatory dysfunction, loss of appetite, and diarrhea, suprapubic tenderness, and hematuria. Patient denies fever, chills, night-sweats, dizziness/lightheadedness with movements, headache, changes in vision, chest pain, chest palpitations, SOB, cough, pleuritic CP, abdominal pain, N/V, burning with urination, dysuria, saddle anesthesia, or numbness or tingling going down the legs. Allergies Allergy/AdvReac Type Severity Reaction Status Date / Time NSAIDS (Non-Steroidal AdvReac Intermediate Interacts Verified 05/31/24 13:43 Anti-Inflamma with other meds Home Medications Medication Instructions Recorded Confirmed Type insulin syr/ndl U100 half juliocesar 0.3 #100 ea 06/15/19 05/27/24 History mL 31 gauge x 5/16" (BD Insulin Syringe Ultra-Fine (half unit)) pen needle, diabetic 31 gauge x #30 ea 06/15/19 05/27/24 History 5/16" (BD Ultra-Fine Short Pen Needle) apixaban 5 mg tablet (Eliquis) 5 mg PO BID #180 tabs 05/23/21 06/06/24 Rx dapagliflozin propanediol 10 mg 10 mg PO QAM 05/09/22 06/06/24 History tablet (Farxiga) solifenacin 10 mg tablet 10 mg PO QAM 05/09/22 06/06/24 History lorazepam 1 mg tablet 1 mg PO BID PRN Anxiety #60 tabs 05/23/22 06/06/24 Rx allopurinol 300 mg tablet 300 mg PO QAM #90 tabs 03/06/23 06/06/24 Rx furosemide 40 mg tablet 40 mg PO Q OTHER DAY PRN edema #45 11/05/23 06/06/24 Rx tabs irbesartan 150 mg tablet (Avapro) 150 mg PO HS 11/05/23 06/06/24 History metformin 1,000 mg tablet 1,000 mg PO BID 03/31/24 06/06/24 History rosuvastatin 40 mg tablet (Crestor) 40 mg PO QPM 04/29/24 06/06/24 History silodosin 8 mg capsule 8 mg PO QAM Urinary Retention 04/29/24 06/06/24 History oxycodone 5 mg tablet 5 mg PO DAILY PRN severe pain #30 05/12/24 06/06/24 Rx tabs metoprolol succinate 50 mg 100 mg (2 x 50 mg) PO DAILY #90 05/31/24 06/06/24 Rx tablet,extended release 24 hr tabs blood sugar diagnostic (FreeStyle 06/06/24 History Test strips) 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 large B cell lymphoma in remission s/p RCHOP 2019 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-sided sciatica Pain of left sacroiliac joint Scoliosis Back pain 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 Hematuria, gross Permanent atrial fibrillation Encounter for pre-operative examination Anxiety Bladder stones H/O prostate cancer S/p brachytherapy Acquired deviated nasal septum BPH (benign prostatic hyperplasia) Diabetes mellitus Well controlled and stable Disc degeneration, lumbar Dyslipidemia Hearing loss Hypertension Hypertrophy of nasal turbinates Idiopathic gout Increased urinary frequency Insomnia Nocturia Nonocclusive coronary atherosclerosis of [place] coronary artery Obstructive sleep apnea Organic impotence Palpitations Premature ventricular contractions Proteinuria Slowing of urinary stream Medical History (Updated 06/06/24 @ 12:05 by Dirk Gary M.D.) Scoliosis PVCs (premature ventricular contractions) hx-f/u dr. 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) Follows with [facility] Chronic combined systolic and diastolic CHF (congestive heart failure) EF 34% on 05/23/20 nuclear stress test EF 45-50% on 06/23/20 ECHO EF 35-40% February 2024 per 03/2024 cardio records Nonsustained paroxysmal ventricular tachycardia Dec 2019 per [facility] records - no recurrence Insomnia Hx of gout Hypertension History of prostate cancer dx 2004, S/p brachytherapy Dyslipidemia Disc degeneration, lumbar Diffuse large B cell lymphoma in remission s/p RCHOP 2018 Diabetes mellitus BPH (benign prostatic hyperplasia) History of atrial fibrillation currently on eliquis; f/u dr. faria Aortic stenosis Mild to moderate per 04/16/24 cardio records Anxiety Bladder stones Poor historian now doing interviews Hearing deficit hearing aids bilat. History of anesthesia reaction WOKE UP VIOLENT AFTER LAST PROCEDURE (PROSTATE SEEDS) PT CAN'T RECALL SP ECIFIC DETAILS BUT WAS TOLD THIS Chronic back pain Sleep apnea has had 2 conflicting sleep studies, most recent stated "he does not have" Surgical History History of urologic surgery cystolithopaxy History of cardiac cath 2018, fatigue/tiredness, [facility] in [place], no stents; f/u dr. faria History of arthroscopy right knee History of colonoscopy History of tooth extraction History of tonsillectomy Family History Father Diabetes Myocardial infarction Denies family history of Ovarian cancer Prostate cancer Breast cancer Colorectal cancer Social History Smoking Status: Never smoker Second Hand Exposure: Yes (hx as child); Do You Dip or Chew Tobacco: No; Hx Alcohol Use: No Hx Substance Use: No Preferred Language: Kittitian Communication Ability: Effective Track Oiler Required: No Beliefs That Will Affect Care: None marital status: Current Living Situation: Spouse current occupational status: retired Feels Safe at Home: Yes Childhood Exposure to Second-Hand Smoke: No Dental Care, Regularly: Yes Physical Activity Frequency: 1-2 Times per Week Seatbelt Use: always Sunscreen Use: Yes Assistive Devices: Hearing Aid - Bilateral and Walker Review of Systems Review of Systems: See HPI above Physical Exam Physical Exam: General: Moderate physical distress secondary to left hip pain with movements; pleasant affect; non-toxic appearing; cooperative; SpO2 95% on RA HEENT: normocephalic, atraumatic; no scleral icterus; PERRLA; vision and hearing grossly intact Neck: supple; no lymphadenopathy; trachea midline; patient demonstrates ability to shrug shoulders against resistance without pain Skin: warm, dry without signs of tenting; no cyanosis; no rashes, bruising, lesions, or erythema noted CV: chest wall NTP; irregularly irregular rhythm tachycardic around 115 bpm; S1/S2 normal; no murmurs/rubs/gallops; pulses intact and symmetric at radial, DP, and PT Lungs: no acute respiratory distress; symmetrical chest wall expansion; clear breath sounds across all lung sheets w/o adventitious sounds; no wheezing ABD: Soft, NTP; BS present; no rebound/guarding; no distention MSK: no tics or fasciculations; no edema noted in the LEs b/l, nonerythematous; patient demonstrates ability to wiggle toes, plantarflex/dorsiflex against resistance, and bend knees bilaterally (albeit with some pain) Neuro: A&Ox3; normal mood and affect; fluent speech; no focal deficits; sensa tion grossly intact in the LEs b/l Results & Data Results & Data Vital Signs (Past 12 Hours) Vital Signs Temp Pulse Resp BP Pulse Ox O2 Del Method 06/06/24 08:15 119 H 06/06/24 08:00 80/64 L 06/06/24 07:50 36.7 C 110 H 18 98 Room Air Laboratory Results Abnormal lab results 06/06/24 06/06/24 06/06/24 Range/Units 08:32 08:40 09:46 WBC 12.46 H (4.8-10.8) K/ul POC Hct 53 H (42-52) % RDW Std Deviation 52.9 H (36.4-46.3) fL RDW Coeff of Golden 14.6 H (11.5-14.5) % Neut # (Auto) 11.28 H (1.40-6.50) K/uL Lymph # (Auto) 0.51 L (1.20-3.40) K/uL PT 14.4 H (9.0-12.0) Seconds INR 1.4 H (0.9-1.1) POC Sodium 130 L (135-144) mmol/L Sodium 128 L (136-145) mmol/L POC Chloride 96 L (101-112) mmol/L Chloride 97 L (98-107) mmol/L POC Total CO2 23 L (24-31) mmol/L POC BUN 19 H (7-18) mg/dl Creatinine 0.58 L (0.6-1.4) mg/dl BUN/Creatinine Ratio 31.0 H (10-20) Glucose 216 H (70-99(Fasting)) mg/dl POC Glucose (other) 211 H (70-99) mg/dl Lactate 3.4 H* (0.4-2.0) mmol/L Total Bilirubin 1.4 H (0.2-1.0) mg/dl Alkaline Phosphatase 152 H (34-104) U/L Troponin I High Sens 34.5 H (0-20) pg/ml Diagnostic Findings Chest X-Ray 06/06/24 08:18 XR chest 1V portable HISTORY: fall, weak COMPARISON: Chest 04/23/2024. Chest CT 05/27/2024. FINDINGS: The cardiac silhouette is mildly enlarged. No pneumothorax. There are old left-sided rib fractures. Small left pleural effusion and left basilar densities persist. No new focal lung consolidations. No evidence for pulmonary edema. IMPRESSION: No change in the small left pleural effusion and left basilar densities. ACT 112: Negative or not required by law. Electronically signed by: Mando Cortez M.D. 06/06/2024 8:50 AM Abdomen/Pelvis CT 06/06/24 08:[address] WITH IV CONTRAST CT DOSE: HISTORY: fall, weak, eliquis, L hip abd back pain TECHNIQUE: Multiaxial CT images of the abdomen and pelvis were performed following the use of intravenous contrast. A dose lowering technique was utilized adhering to the principles of ALARA. COMPARISON STUDY: Abdomen and pelvis CT 05/27/2024. FINDINGS: Small right and moderate left pleural effusions have increased in size and are better appreciated on the same day chest CT. The heart remains enlarged. No new no pneumoperitoneum. No pneumatosis. There is an acute to subacute mild superior endplate compression fracture at L4 demonstrating up to 10% loss of height. This was present on the prior study. This accounts for the mild paravertebral edema at this level. There are old bilateral rib fractures again noted. Diffuse body wall edema has progressed. Cirrhotic liver again noted. Cholelithiasis. The spleen is normal in size. The adrenal glands and pancreas are unremarkable. Scattered subcentimeter bilateral renal hypodense lesions again noted. These are technically too small to characterize but remain stable and therefore favors cysts. Left-sided nephrolithiasis. No ureteral stones. No hydronephrosis. There is a 4 mm stone within the bladder. No bladder wall thickening. Multiple brachytherapy seeds again noted within the prostate gland. Trace ascites is present. The main portal vein is patent. Calcified plaque within the abdominal aorta which measures up to 3.3 cm in diameter. This remains unchanged. Mild retroperitoneal lymphadenopathy remains stable. No new or progressive lymphadenopathy identified. Moderate perinephric edema again noted. There is mild diffuse mesenteric edema. Colonic diverticulosis. No evidence for acute diverticulitis. No bowel wall thickening or obstruction. Normal appendix. No retroperitoneal hematoma. IMPRESSION: 1. Increase in size in the small right and moderate left pleural effusions. 2. There is an acute to subacute mild superior endplate compression fracture at L4. This was present on the prior study. 3. Otherwise, no acute process within the abdomen or pelvis. 4. Diffuse body wall edema has progressed. 5. Cirrhotic liver again noted. 6. Cholelithiasis. 7. Left-sided nephrolithiasis. 8. A small bladder stone is new from the prior study. 9. Stable mild retroperitoneal lymphadenopathy. 10. Additional findings as described above. ACT 112: Negative or not required by law. Electronically signed by: Mando Cortez M.D. 06/06/2024 9:[address] 06/06/24 08:[address] DOSE: 3401.22 mGy.cm HISTORY: fall, weak, eliquis TECHNIQUE: Multiaxial CT images of the cervical spine were performed and reformatted in the sagittal and coronal plane without the use of contrast. A dose lowering technique was utilized adhering to the principles of ALARA. COMPARISON: None. FINDINGS: No fractures. No subluxation. Prevertebral soft tissues and the C1-C2 interval are intact. No pneumothorax. IMPRESSION: No fractures within the cervical spine. ACT 112: Negative or not required by law. Electronically signed by: Mando Cortez M.D. 06/06/2024 9:[address] 06/06/24 08:[address] WITH CONTRAST CT DOSE: HISTORY: fall, weak, eliquis TECHNIQUE: Multiaxial CT images of the chest were performed following the intravenous administration of contrast. A dose lowering technique was utilized adhering to the principles of ALARA. COMPARISON: Chest CT 05/27/2024. FINDINGS: Moderate body wall edema has progressed. The abdominal structures will be reported separately. Increase in size in the now small right and moderate left pleural effusions. No pericardial effusion. The heart remains mildly enlarged. No mediastinal or hilar lymphadenopathy. Normal esophagus. Mild calcified plaque within the normal caliber thoracic aorta. No evidence for an aortic dissection. Severe coronary artery calcifications are again noted. The central pulmonary arteries are patent. There are old bilateral rib fractures. No acute fractures within the chest. The central airways are patent. No pneumothorax. Mild dependent changes seen within the lung bases. No new focal lung consolidations to suggest a pneumonia. Cholelithiasis and left-sided nephrolithiasis again noted. Chronic compression deformity at L1 again noted. There is a new 9 mm nodular density within the right upper lobe on image 89. This favors a small focus of inflammatory/infectious change. IMPRESSION: 1. Increase in size in the now small right and moderate left pleural effusions. 2. Diffuse body wall edema has also progressed. 3. Stable cardiomegaly. 4. There is a new 9 mm nodular density within the right upper lobe. This favors a small focus of inflammatory/infectious change. 5. No acute traumatic process within the chest. 6. The abdominal structures will be reported separately. ACT 112: Negative or not required by law. Electronically signed by: Mando Cortez M.D. 06/06/2024 9:[address] 06/06/24 08:[address] DOSE: HISTORY: fall, weak, eliquis TECHNIQUE: Multiaxial CT images of the head were performed without the use of intravenous contrast. Automated exposure control was utilized for this study. A dose lowering technique was utilized adhering to the principles of ALARA. Comparison: Head CT 11/12/2012. Findings: The paranasal sinuses and mastoid air cells are clear. The calvarium and skull base are intact. There is no mass, hematoma, midline shift, acute infarct. White matter hypodensity is nonspecific but suggestive of microvascular ischemic change. The ventricles and sulci demonstrate mild age-related involutional changes. Motion artifact. Impression: Motion artifact. No definite acute intracranial abnormality. ACT 112: Negative or not required by law. Electronically signed by: Mando Cortez M.D. 06/06/2024 9:12 AM ECG Additional Comments: ECG revealed atrial fibrillation with RVR at 118 bpm; QTc 468 Code Status & VTE Plan Code Status Full code (discussed with patient and patient's at the bedside) VTE Prophylaxis Plan VTE Prophylaxis will be ordered: Yes Supervising Physician Co-Signing Physician Notes Patient seen and examined, chart reviewed, case discussed with Mando Mazariegos PA-C and I agree with the assessment and plan as above except as otherwise noted Labs and images reviewed 78-year-old male with past medical history of heart failure with reduced ejection fraction 35-40%, YENIFER, as needed diuretic use which she has not used recently, liver cirrhosis suspected due to HARVEY, A-fib on apixaban, past prostat e cancer s/p seed implant who has had progressive weakness over the last 1-2 weeks and had a ground-level fall while ambulating with his walker. No syncope/presyncopal symptoms, was fatigued. Has had some swelling in his legs and has 1+ pitting edema to lower extremities bilaterally on admission. Initially was evaluated for potential sepsis due to hypotension and a leukocytosis. His leukocytosis is neutrophilic predominant but does not have a left shift, NLR is elevated at 22. Procalcitonin is negative. He has not had any infectious symptoms and specifically denies congestion, cough, fevers, chills, night sweats, dysuria. He does have a history of recent hernia repair with some surgical site tenderness but no erythema, no worsening tenderness, and no signs of superimposed infection. Abdominal CT shows diffuse body wall edema, cirrhotic liver, acute to subacute mild superior endplate compression fracture at L4, and small right and moderate left pleural effusions. Small bladder stone is noted to new from prior study. otherwise without acute findings. CT of the chest shows bilateral pleural effusions, mall 9 mm nodular density in right upper lobe? Small focus of inflammatory versus infectious change. Patient's urine does have blood, leukocyte esterase but is without nitrates. Given leukocytosis with leukocyte esterase and blood in urine, and possible area of inflammatory/infectious change on CT with initial presenting hypotension and elevated lactate reasonable to treat as potential sepsis and follow reassessment at time of admission. 500 cc NSS was given in the ER, sepsis guideline recommendations 2065 cc AB W bolus dosing deferred due to diffuse volume overload with bilateral pleural effusions and history of heart failure with reduced EF. On bedside reassessment he is normotensive. Treated with Zosyn. May have urinary source especially with associated stone seen on imaging. Overall he is volume overloaded, and recommend diuresis with Lasix twice daily 40 mg however given presenting initial hypotension and possible infection will defer for after 12-24 hours of antibiotic treatment. He is not hypoxic or in distress. PG Care Time/CCT Total # of Minutes Spent Total Time Spent with Patient: Total time spent is greater than 50% in coordination of care (as documented) at patient's floor/unit and/or counseling patient: Coding [place] [address] INT INP/OBS CARE 3/75MIN Patient Type Established History Comprehensive Exam Comprehensive Medical Decision Making High Complexity Diagnoses Fall [id number].XXXA Acute on chronic systolic heart failure I50.23 Sepsis A41.9 Atrial fibrillation with RVR I48.91 Hypertension I10 Hematuria R31.9 Type 2 diabetes mellitus E11.9 Hyponatremia E87.1 Pleural effusion J90 Acute UTI N39.0 Cirrhosis K74.60 Elevated troponin R79.89
[2024-06-06 11:20] LABS: Appearance Urine Cloudy (Clear); Bacteria Urine Automated None Seen (None Seen); Bilirubin Urine Negative (Negative); Blood Urine 3+ (Negative); Color Urine Yellow; Epithelial Cell Urine Auto 0-2 /hpf (0-2); Glucose Urine UA 3+ (Negative); Ketones Urine Negative (Negative); Leukocyte Esterase Urine 1+ (Negative); Nitrite Urine Negative (Negative); Protein Urine 2+ (Negative); RBC Urine Automated >20 /hpf (0-2); Specific Gravity Urine 1.041 (1.000-1.030); Urobilinogen Urine Negative (Negative); WBC Urine Automated >50 /hpf (0-5)
[2024-06-06] MEDS: PIPERACILLIN/TAZOBACTAM 4.5 GM/100 ML BAG IV ONE (12:32)
[2024-06-06] MEDS ORDERED: GLUCOSE 40% GEL 15 GM TUBE PO PRN (14:38)
[2024-06-06] MEDS ORDERED: GLUCAGON FOR INJ 1 MG VIAL SQ PRN (14:38)
[2024-06-06] MEDS ORDERED: ONDANSETRON INJ 2 MG/ML 2 ML VIAL IV PRN (14:38)
[2024-06-06] MEDS ORDERED: CARBOHYDRATES FOR HYPOGLYCEMIA PO PRN (14:38)
[2024-06-06] MEDS ORDERED: DEXTROSE 50% 50 ML SYRINGE IV PRN (14:38)
[2024-06-06] MEDS ORDERED: GLUCOSE 10 TAB/TUBE PO PRN (14:38)
[2024-06-06] MEDS ORDERED: oxyCODONE HCL IR 5 MG TAB (IMMEDIATE RELEASE) PO PRN (14:38)
[2024-06-06] MEDS: oxyCODONE HCL IR 5 MG TAB (IMMEDIATE RELEASE) PO PRN (15:07)
[2024-06-06] MEDS: INSULIN ASPART PER UNIT CHARGE SC SCH (17:05)
[2024-06-06] MEDS: PIPERACILLIN/TAZOBACTAM 4.5 GM in DEXTROSE 5% MINI-B 100 ML IV SCH (17:05)
[2024-06-06] MEDS: APIXABAN 5 MG TABLET PO SCH (20:18)
[2024-06-06] MEDS: LORazepam 1 MG TAB PO PRN (20:19)
[2024-06-06] MEDS: ROSUVASTATIN CALCIUM 20 MG TAB PO SCH (20:19)
[2024-06-07 07:35] LABS: Basophils # (auto) 0.05 K/uL (0.00-0.20); Basophils % (auto) 0.5 %; Eosinophils # (auto) 0.14 K/uL (0.00-0.50); Eosinophils % (auto) 1.5 %; Hematocrit (blood only) 47.7 % (42.0-52.0); Hemoglobin 16.4 g/dl (14.0-18.0); Immature Granulocytes # (auto) 0.06 K/uL (0.01-0.20); Immature Granulocytes % (auto) 0.6 %; Lymphocytes # (auto) 0.56 K/uL (1.20-3.40); Mean Corpuscular Hemoglobin 33.8 pg (25.0-34.0); Mean Corpuscular Hgb Conc 34.4 g/dL (32.0-36.0); Mean Corpuscular Volume 98.4 fL (80.0-100.0); Mean Platelet Volume 9.8 fL (9.4-12.4); Monocytes # (auto) 0.55 K/uL (0.11-0.59); Monocytes % (auto) 5.9 %; Neutrophils # (auto) 7.97 K/uL (1.40-6.50); Neutrophils % (auto) 85.5 %; Platelet Count 210 K/uL (130-400); RDW Coefficient of Variation 14.9 % (11.5-14.5); RDW Standard Deviation 54.4 fL (36.4-46.3); Red Blood Count 4.85 M/uL (4.70-6.10); White Blood Count 9.33 K/ul (4.8-10.8)
[2024-06-07 07:36] LABS: Albumin Globulin Ratio 1.3 (0.9-2); Albumin Level 3.4 gm/dl (3.4-5.0); BUN Creatinine Ratio 24.2 (10-20); Bilirubin,Total 1.2 mg/dl (0.2-1.0); Calcium 9.2 mg/dl (8.6-10.3); Creatinine Clr Calc Pharmacy 124.2 ml/min; Est GFR (African American) 109.4 ml/min; Est GFR (Non-African American) 94.4 ml/min; Globulin 2.6 gm/dl (2.5-4.0); Magnesium 1.8 mg/dl (1.7-2.4); Potassium 3.9 mmol/L (3.5-5.1)
[2024-06-07 07:45] LABS: INR 1.3 (0.9-1.1); Prothrombin Time 13.5 Seconds (9.0-12.0)
[2024-06-07] MEDS: METOPROLOL SUCC 50MG EXT REL TAB PO SCH (08:09)
[2024-06-07] MEDS: TAMSULOSIN HCL 0.4 MG CAP PO SCH (08:09)
[2024-06-07] MEDS: OXYBUTYNIN CHLORIDE XL 5 MG TABCR PO SCH (08:09)
[2024-06-07] MEDS: FUROSEMIDE 40 MG/4 ML VIAL IV SCH (08:09)
[2024-06-07] MEDS: allopurinoL 300 MG TAB PO SCH (08:09)
[2024-06-07] MEDS ORDERED: NON-FORMULARY MEDICATION (Dapagliflozin Propanediol [Farxiga] 10 mg tablet) PO SCH (09:00)
[2024-06-07] MEDS: LIDOCAINE 5% 1 PATCH TD SCH (12:53)
--- NOTE | 2024-06-07 13:28 | Hospitalist Progress Note ---
Date of Service June 07, 2024 Assessment & Plan (1) Fall: Plan: Patient sustained a ground-level fall on the morning of 06/06 No head strike; no LOC; on Eliquis Head and cervical spine CT without acute findings A/P CT revealed acute to subacute mild superior endplate compression fracture at L4, but this was present on a prior study Fall precautions Acetaminophen as needed for pain Oxycodone p.o. q6h as needed for breakthrough pain PT/OT evaluations appreciated Low impact mechanical fall without head injury [id number] risk 5 points (high) Will continue Eliquis as scheduled (2) Acute on chronic systolic heart failure: Plan: Most recent echocardiogram revealed LVEF 35-40% in February 2024 BNP elevated at 974 Initially suspected to be volume overloaded Patient received 40 mg IV Lasix this a.m. Does not seem to be volume overloaded anymore. Laying flat in bed No leg swelling Blood pressure is borderline low Will hold off on further IV diuresis 1500 mL fluid restriction Continue dapagliflozin Daily weights Strict I&O monitoring (3) Sepsis: Plan: Suspected urinary source Leukocytosis of 12.16 with neutrophil predominance on admission. Resolved Note: Patient was originally thought to be hypotensive on arrival at 80/64 However, patient's BP cuff was set to a "" setting and reassessment of blood pressure revealed normotensive at 118/100 Lactate elevated at 3.4-->2.4 Procalcitonin WNL Blood cultures ordered, pending Zosyn 4.5g IV q8h (4) Atrial fibrillation with RVR: Plan: EKG on arrival revealed atrial fibrillation with RVR at 118 bpm Continue Eliquis as scheduled Continue metoprolol Continuous telemetry monitoring (5) Hypertension: Plan: Continue metoprolol Hold irbesartan can provide additional room for diuresis as needed (6) Hematuria: Plan: Patient reports intermittent, gross hematuria History of recent bladder surgery 3 weeks ago Hgb 16.6 on arrival UA 3+ for blood on arrival While patient does report hematuria which is confirmed in UA, this was weighed against risk of stroke by holding Eliquis Continue Eliquis for now and monitor H&H levels intermittently (7) Type 2 diabetes mellitus: Plan: Last A1c at 7.2% on 05/10/2024 Hold metformin Continue dapagliflozin SSI; with target BSG range 110-140mg/dL, CF 40, carb ratio 10 T2DM diet BSG ACHS Adjust regimen as needed (8) Hyponatremia: Plan: Sodium 128 on arrival Suspect secondary to volume overload / dilution Diuresis (as above) Sodium 132 today after diuretic Continue low-sodium diet Recheck a.m. BMP (9) Pleural effusion: Plan: Chest CT revealed small right and moderate left pleural effusions on arrival Received 1 dose of Lasix (as above) Patient is on room air, not complaining of shortness of breath (10) Acute UTI: Plan: Zosyn (as above) (11) Cirrhosis: (12) Elevated troponin: Plan: Likely demand ischemia Plan Disposition: Admit to PCU telemetry Full code Heart healthy, T2DM, low-sodium diet (1500 mL fluid restriction) VTE PPx: Continue Eliquis Admission and Anticipated Discharge Date Admission Date: June 06, 2024 Subjective Patient's most significant complaint today is pain in the left side of his back. He denied shortness of breath. He denies chest pain. Review of Systems Review of Systems: All systems reviewed & are unremarkable except as noted in Subjective Physical Exam Physical Exam: General: Awake, conversant, elderly frail looking male Heart: S1, S2/irregularly irregular rhythm, no murmur rubs or gallops Lungs: Clear to auscultation bilaterally but diminished at the bases. Normal effort Abdomen: Soft/nontender/nondistended. No hepatosplenomegaly Extremities: No clubbing/cyanosis. No edema Behavior: Appropriate, cooperative Results & Data Results & Data Vital Signs (Past 12 Hours) Vital Signs Temp Pulse Resp BP Pulse Ox O2 Del Method 06/07/24 11:27 36.6 C 82 16 95/63 L 96 Room Air 06/07/24 07:22 36.5 C 117 H 18 112/79 99 Room Air 06/07/24 03:09 36.6 C 98 H 16 105/70 100 Room Air Laboratory Results Abnormal lab results 06/06/24 06/06/24 06/07/24 Range/Units 16:13 20:24 07:08 RDW Std Deviation 54.4 H (36.4-46.3) fL RDW Coeff of Golden 14.9 H (11.5-14.5) % Neut # (Auto) 7.97 H (1.40-6.50) K/uL Lymph # (Auto) 0.56 L (1.20-3.40) K/uL PT 13.5 H (9.0-12.0) Seconds INR 1.3 H (0.9-1.1) Sodium 132 L (136-145) mmol/L BUN/Creatinine Ratio 24.2 H (10-20) Glucose 138 H (70-99(Fasting)) mg/dl POC Glucose 153 H 160 H (70-99) mg/dl Total Bilirubin 1.2 H (0.2-1.0) mg/dl Alkaline Phosphatase 160 H (34-104) U/L 06/07/24 Range/Units 11:24 RDW Std Deviation (36.4-46.3) fL RDW Coeff of Golden (11.5-14.5) % Neut # (Auto) (1.40-6.50) K/uL Lymph # (Auto) (1.20-3.40) K/uL PT (9.0-12.0) Seconds INR (0.9-1.1) Sodium (136-145) mmol/L BUN/Creatinine Ratio (10-20) Glucose (70-99(Fasting)) mg/dl POC Glucose 169 H (70-99) mg/dl Total Bilirubin (0.2-1.0) mg/dl Alkaline Phosphatase (34-104) U/L PG Care Time/CCT Total # of Minutes Spent Total Time Spent with Patient: Total time spent is greater than 50% in coordination of care (as documented) at patient's floor/unit and/or counseling patient: Coding Level of Care Code 91205 SUB INP/OBS CARE 2/35MIN Diagnoses Fall W19.XXXA Acute on chronic systolic heart failure I50.23 Sepsis A41.9 Atrial fibrillation with RVR I48.91 Hypertension I10 Hematuria R31.9 Type 2 diabetes mellitus E11.9 Hyponatremia E87.1 Pleural effusion J90 Acute UTI N39.0 Cirrhosis K74.60 Elevated troponin R79.89
[2024-06-07] MEDS: ACETAMINOPHEN 325 MG TAB PO PRN (19:16)
--- NOTE | 2024-06-07 23:28 | Electrocardiogram Report ---
Test Reason : Blood Pressure : / mmHG Vent. Rate : 118 BPM Atrial Rate : 000 BPM P-R Int : 000 ms QRS Dur : 092 ms QT Int : 334 ms P-R-T Axes : 000 010 172 degrees QTc Int : 468 ms Atrial fibrillation with rapid ventricular response Low voltage QRS Nonspecific ST and T wave abnormality Abnormal ECG When compared with ECG of 23-APR-2024 14:43, Vent. rate has increased BY 62 BPM Confirmed by Otoniel Estrella ([id number]) on 06/07/2024 11:28:19 PM Referred By: REFERRED SELF Confirmed By:Otoniel Estrella
[2024-06-08] MEDS: oxyCODONE HCL IR 5 MG TAB (IMMEDIATE RELEASE) PO PRN ×2 (01:26→14:08)
[2024-06-08 06:06] LABS: Hematocrit (blood only) 42.1 % (42.0-52.0); Mean Corpuscular Hemoglobin 33.2 pg (25.0-34.0); Mean Corpuscular Hgb Conc 33.3 g/dL (32.0-36.0); Mean Corpuscular Volume 99.8 fL (80.0-100.0); Platelet Count 158 K/uL (130-400); RDW Coefficient of Variation 14.6 % (11.5-14.5); RDW Standard Deviation 53.5 fL (36.4-46.3); Red Blood Count 4.22 M/uL (4.70-6.10); White Blood Count 8.71 K/ul (4.8-10.8)
[2024-06-08 06:09] LABS: Albumin Level 2.7 gm/dl (3.4-5.0); Calcium 8.6 mg/dl (8.6-10.3); Potassium 3.9 mmol/L (3.5-5.1)
[2024-06-08 06:15] LABS: Albumin Globulin Ratio 1.2 (0.9-2); BUN Creatinine Ratio 29.5 (10-20); Creatinine Clr Calc Pharmacy 126.3 ml/min; Est GFR (African American) 110.1 ml/min; Globulin 2.3 gm/dl (2.5-4.0)
[2024-06-08] MEDS: METOPROLOL TARTRATE 50 MG TAB PO STA (07:59)
[2024-06-08 08:23] LABS: Magnesium 1.7 mg/dl (1.7-2.4)
[2024-06-08 09:03] LABS: Basophils # (auto) 0.05 K/uL (0.00-0.20); Basophils % (auto) 0.6 %; Eosinophils # (auto) 0.15 K/uL (0.00-0.50); Eosinophils % (auto) 1.7 %; Immature Granulocytes # (auto) 0.08 K/uL (0.01-0.20); Immature Granulocytes % (auto) 0.9 %; Lymphocytes # (auto) 0.75 K/uL (1.20-3.40); Lymphocytes % (auto) 8.3 %; Monocytes # (auto) 0.84 K/uL (0.11-0.59); Monocytes % (auto) 9.3 %; Neutrophils # (auto) 7.21 K/uL (1.40-6.50); Neutrophils % (auto) 79.2 %
--- NOTE | 2024-06-08 12:20 | Hospitalist Progress Note ---
Date of Service June 08, 2024 Assessment & Plan (1) Fall: Plan: Patient sustained a ground-level fall on the morning of 06/06 No head strike; no LOC; on Eliquis Head and cervical spine CT without acute findings A/P CT revealed acute to subacute mild superior endplate compression fracture at L4, but this was present on a prior study Fall precautions Acetaminophen as needed for pain Oxycodone as needed for breakthrough pain PT/OT recommended rehab. Case management working on it. Low impact mechanical fall without head injury [id number] risk 5 points (high) Will continue Eliquis as scheduled (2) Acute on chronic systolic heart failure: Plan: Most recent echocardiogram revealed LVEF 35-40% in February 2024 BNP elevated at 974 Initially suspected to be volume overloaded Patient received 40 mg IV Lasix upon admission Does not seem to be volume overloaded anymore. Laying flat in bed No leg swelling Will hold off on further IV diuresis Patient takes Lasix at home on an as-needed basis. Will evaluate the need for p.o. Lasix daily 1500 mL fluid restriction Continue dapagliflozin Daily weights Strict I&O monitoring (3) Sepsis: Plan: Suspected urinary source Leukocytosis of 12.16 with neutrophil predominance on admission. Resolved Note: Patient was originally thought to be hypotensive on arrival at 80/64 However, patient's BP cuff was set to a "" setting and reassessment of blood pressure revealed normotensive at 118/100 Lactate elevated at 3.4-->2.4 Procalcitonin WNL Blood cultures pending Urine culture grew lactobacillus without much of any symptoms of UTI Continue Zosyn 4.5g IV q8h. May consider discontinuing Zosyn tomorrow 06/09. (4) Atrial fibrillation with RVR: Plan: EKG on arrival revealed atrial fibrillation with RVR at 118 bpm Continue Eliquis as scheduled Continue metoprolol Continuous telemetry monitoring (5) Hypertension: Plan: Continue metoprolol Hold irbesartan can provide additional room for diuresis as needed (6) Hematuria: Plan: Patient reports intermittent, gross hematuria History of recent bladder surgery 3 weeks ago Hgb 16.6 on arrival UA 3+ for blood on arrival While patient does report hematuria which is confirmed in UA, this was weighed against risk of stroke by holding Eliquis Continue Eliquis for now and monitor H&H levels intermittently (7) Type 2 diabetes mellitus: Plan: Last A1c at 7.2% on 05/10/2024 Hold metformin Continue dapagliflozin SSI; with target BSG range 110-140mg/dL, CF 40, carb ratio 10 T2DM diet BSG ACHS Adjust regimen as needed (8) Hyponatremia: Plan: Sodium 128 on arrival Suspect secondary to volume overload / dilution Diuresis (as above) Improved after diuretic Continue low-sodium diet Recheck a.m. BMP (9) Pleural effusion: Plan: Chest CT revealed small right and moderate left pleural effusions on arrival Received 1 dose of IV Lasix (as above) Patient is on room air, not complaining of shortness of breath (10) Acute UTI: Plan: Zosyn (as above) Urine culture growing lactobacillus May not have been a real UTI in the absence of symptoms Consider discontinuing Zosyn on 06/09 (11) Cirrhosis: (12) Elevated troponin: Plan: Likely demand ischemia Plan Disposition: Admit to PCU telemetry Full code Heart healthy, T2DM, low-sodium diet (1500 mL fluid restriction) VTE PPx: Continue Eliquis Will need placement. Case management on board. Start Seroquel nightly to help restore healthy sleep-wake cycle to prevent delirium Admission and Anticipated Discharge Date Admission Date: June 06, 2024 Subjective Patient did not sleep well last night. Was having issues with anxiety. He denies any chest pain or shortness of breath. at the bedside. Review of Systems Review of Systems: All systems reviewed & are unremarkable except as noted in Subjective Physical Exam Physical Exam: General: Awake, conversant, elderly frail looking male Heart: S1, S2/irregularly irregular rhythm, no murmur rubs or gallops Lungs: Clear to auscultation bilaterally but diminished at the bases. Normal effort Abdomen: Soft/nontender/nondistended. No hepatosplenomegaly Extremities: No clubbing/cyanosis. No edema Behavior: Appropriate, cooperative Results & Data Results & Data Vital Signs (Past 12 Hours) Vital Signs Temp Pulse Resp BP BP Pulse Ox O2 Del Method 06/08/24 10:59 36.5 C 76 18 109/76 97 Room Air 06/08/24 07:21 36.5 C 82 18 129/85 99 Room Air 06/08/24 03:34 36.5 C 85 16 96/58 L 97 Room Air PG Care Time/CCT Total # of Minutes Spent Total Time Spent with Patient: Total time spent is greater than 50% in coordination of care (as documented) at patient's floor/unit and/or counseling patient: Coding Level of Care Code 07998 SUB INP/OBS CARE 2/35MIN Diagnoses Fall W19.XXXA Acute on chronic systolic heart failure I50.23 Sepsis A41.9 Atrial fibrillation with RVR I48.91 Hypertension I10 Hematuria R31.9 Type 2 diabetes mellitus E11.9 Hyponatremia E87.1 Pleural effusion J90 Acute UTI N39.0 Cirrhosis K74.60 Elevated troponin R79.89
[2024-06-08] MEDS: MAGNESIUM SULFATE / D5W 1 GM/100 ML BAG IV ONE (13:23)
[2024-06-08] MEDS: QUEtiapine FUMARATE 25 MG TABLET PO SCH (20:38)
[2024-06-08] MEDS: DOCUSATE SODIUM 100 MG CAP PO SCH (20:39)
[2024-06-09 06:38] LABS: Basophils # (auto) 0.06 K/uL (0.00-0.20); Basophils % (auto) 0.7 %; Eosinophils # (auto) 0.38 K/uL (0.00-0.50); Eosinophils % (auto) 4.3 %; Hematocrit (blood only) 42.8 % (42.0-52.0); Hemoglobin 14.8 g/dl (14.0-18.0); Immature Granulocytes # (auto) 0.04 K/uL (0.01-0.20); Immature Granulocytes % (auto) 0.5 %; Lymphocytes # (auto) 0.59 K/uL (1.20-3.40); Lymphocytes % (auto) 6.7 %; Mean Corpuscular Hemoglobin 33.5 pg (25.0-34.0); Mean Corpuscular Hgb Conc 34.6 g/dL (32.0-36.0); Mean Corpuscular Volume 96.8 fL (80.0-100.0); Monocytes # (auto) 0.62 K/uL (0.11-0.59); Monocytes % (auto) 7.1 %; Neutrophils % (auto) 80.7 %; Platelet Count 169 K/uL (130-400); RDW Coefficient of Variation 14.6 % (11.5-14.5); RDW Standard Deviation 51.9 fL (36.4-46.3); Red Blood Count 4.42 M/uL (4.70-6.10); White Blood Count 8.79 K/ul (4.8-10.8)
[2024-06-09 07:05] LABS: Alanine Aminotransferase 55 U/L (7-52); Albumin Globulin Ratio 1.3 (0.9-2); Albumin Level 2.9 gm/dl (3.4-5.0); Alkaline Phosphatase 155 U/L (34-104); BUN Creatinine Ratio 29.5 (10-20); Bilirubin,Total 0.9 mg/dl (0.2-1.0); Blood Urea Nitrogen 18 mg/dl (6-23); Calcium 8.8 mg/dl (8.6-10.3); Carbon Dioxide 25 mmol/L (21-32); Chloride 100 mmol/L (98-107); Creatinine Clr Calc Pharmacy 126.7 ml/min; Est GFR (African American) 110.1 ml/min; Globulin 2.3 gm/dl (2.5-4.0); Glucose 137 mg/dl (70-99(Fasting)); Total Protein 5.2 gm/dl (6.0-8.3)
--- NOTE | 2024-06-09 07:48 | Hospitalist Progress Note ---
Date of Service June 09, 2024 Assessment & Plan (1) Fall: Plan: Patient sustained a ground-level fall on the morning of 06/06 No head strike; no LOC; on Eliquis Head and cervical spine CT without acute findings A/P CT revealed acute to subacute mild superior endplate compression fracture at L4, but this was present on a prior study Fall precautions scheduled Acetaminophen lidoderm patch to L4, miacalcin Ultram as needed for breakthrough pain PT/OT recommended rehab. Case management working on it. family wants to try [facility] decubitus ulcer present on admission IIB (2) Acute on chronic systolic heart failure: Plan: Most recent echocardiogram revealed LVEF 35-40% in February 2024 BNP elevated at 974, small right and moderate left pleural effusions on arrival Initially suspected to be volume overloaded Patient received 40 mg IV Lasix upon admission, Laying flat in bed Euvolemic No leg swelling Patient takes Lasix at home on an as-needed basis. Will evaluate the need for p.o. Lasix daily 1500 mL fluid restriction Continue dapagliflozin, metoprolol, (3) Sepsis: Plan: Ruled out Suspected urinary source, pt with intermittent gross hematuria, but no dysuria Leukocytosis of 12.16 with neutrophil predominance on admission. Resolved History of prostate cancer with seed placement Lactate elevated at 3.4-->2.4 Procalcitonin WNL Blood cultures pending Urine culture grew lactobacillus without much of any symptoms of UTI stopped antibiotics 06/09/24 (4) Atrial fibrillation with RVR: Plan: EKG on arrival revealed atrial fibrillation with RVR at 118 bpm Continue Eliquis (initially held with hematuria) [id number] risk 5 points (high) Continue metoprolol Elevated troponin without acute ECG changes, felt to be demand ischemia poa For Chronic hypertension pt also takes irbesartan as outpt, this is held for diuresis and initial concern for low BP consider restarting for guideline based treatment of heartfailure but blood pressure is still low (5) Type 2 diabetes mellitus: Plan: Last A1c at 7.2% on 05/10/2024 Hold metformin Continue dapagliflozin SSI; with target BSG range 110-140mg/dL, CF 40, carb ratio 10 T2DM diet BSG ACHS Adjust regimen as needed (6) Hyponatremia: Plan: Sodium 128 on arrival-> 131 Suspect secondary to volume overload / dilution( osm not checked) urine spc gravity high on admission Diuresis (as above) Improved after diuretic Continue low-sodium diet Recheck a.m. 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 Case management on board. Family wants to try [facility], updated 06/09/24 Start Seroquel nightly to help restore healthy sleep-wake cycle to prevent delirium Admission and Anticipated Discharge Date Admission Date: June 06, 2024 Subjective This pt is with some memory impairment, is weakened, Pts desire to get some rehab and attempt to return home, if not able to decision will be for snf( less likely ) or possibly return to home with hospice as has been having recently acc elerated decline Physical Exam Physical Exam: Pt is pleasant, forgetful bruising on arms and legs cardiac is regular with murmur lungs are diminished but clear ext with trace edema Results & Data Results & Data Vital Signs (Past 12 Hours) Vital Signs Temp Pulse Pulse Resp BP Pulse Ox O2 Del Method 06/09/24 03:11 97.9 F 82 20 122/82 100 Room Air 06/08/24 22:45 97.5 F L 98 H 18 104/74 97 Room Air 06/08/24 22:00 89 Laboratory Results reviewed cbc reviewed chemistry PG Care Time/CCT Total # of Minutes Spent Total Time Spent with Patient: Total time spent is greater than 50% in coordination of care (as documented) at patient's floor/unit and/or counseling patient: Coding Level of Care Code 68825 SUB INP/OBS CARE 3/50MIN Diagnoses Fall W19.XXXA Acute on chronic systolic heart failure I50.23 Sepsis A41.9 Atrial fibrillation with RVR I48.91 Type 2 diabetes mellitus E11.9 Hyponatremia E87.1
[2024-06-09 08:18] LABS: Potassium 3.8 mmol/L (3.5-5.1)
[2024-06-09] MEDS: ACETAMINOPHEN 500 MG TAB PO SCH (20:13)
[2024-06-10] MEDS: CALCITONIN SALMON NA 200 IU/AC 3.7 ML BTL SCH (10:23)
--- NOTE | 2024-06-10 11:38 | Discharge Summary ---
Discharge Summary Date of Service June 10, 2024 Principal Dx & Hospital Course #1 = Principal Diagnosis (1) Fall: Patient sustained a ground-level fall on the morning of 06/06 No head strike; no LOC; on Eliquis Head and cervical spine CT without acute findings A/P CT revealed acute to subacute mild superior endplate compression fracture at L4, but this was present on a prior study Fall precautions scheduled Acetaminophen lidoderm patch to L4, miacalcin Ultram as needed for breakthrough pain and pt requests oxycodone be available for severe pain prior to participating in PT PT/OT recommended rehab. decubitus ulcer present on admission IIB (2) Acute on chronic systolic heart failure: Most recent echocardiogram revealed LVEF 35-40% in February 2024 BNP elevated at 974, small right and moderate left pleural effusions on arrival Initially suspected to be volume overloaded Patient received 40 mg IV Lasix upon admission, Laying flat in bed Euvolemic No leg swelling Patient takes Lasix at home on an as-needed basis. Will evaluate the need for p.o. Lasix daily 1500 mL fluid restriction Continue dapagliflozin, metoprolol, irbesartan resumed on discharge (3) Sepsis: Ruled out Suspected urinary source, pt with intermittent gross hematuria, but no dysuria Leukocytosis of 12.16 with neutrophil predominance on admission. Resolved and was likely from stress response from fall History of prostate cancer with seed placement Lactate elevated at 3.4-->2.4 Procalcitonin WNL Blood cultures NGTD Urine culture grew lactobacillus without much of any symptoms of UTI stopped antibiotics 06/09/24 Follow up with Urology as outpt for bladder stone seen on CT abd/pel (4) Atrial fibrillation with RVR: EKG on arrival revealed atrial fibrillation with RVR at 118 bpm Continue Eliquis (initially held with hematuria) [id number] risk 5 points (high) Continue metoprolol Elevated troponin without acute ECG changes, felt to be demand ischemia poa For Chronic hypertension pt also takes irbesartan as outpt, this is held for diuresis and initial concern for low BP-BPs now normal and resume on discharge for HFrEF (5) Type 2 diabetes mellitus: Last A1c at 7.2% on 05/10/2024 resume home metformin on discharge and continue dapagliflozin T2DM diet BSG ACHS Adjust regimen as needed (6) Hyponatremia: Sodium 128 on arrival-> 131 Suspect secondary to volume overload / dilution( osm not checked) urine spc gravity high on admission Diuresis (as above), Improved after diuretic Follow BMP as outpt Plan History of Cirrhosis, Treated in past for Diffuse B cell lymphoma last seen 06/08 without recurrence Started low dose Seroquel nightly to help restore healthy sleep-wake cycle to prevent delirium-continue while at rehab but may not need once discharged to home VTE PPx: Elijoshis Dispo-stable for dc to [facility] Notes For Next Care Provider Needs ongoing follow up with Urology for bladder stones, hematuria--> no appointment currently scheduled Check CMP for hyponatremia and mildly elevated LFTs in 1 week Medication Changes From Visit Added scheduled Tylenol 1000mg po tid Added Calcitonin nasal spray 1 spray alt nostrils each day Added lidocaine patch daily Added tramadol 50m hpo q8h prn mod pain Added oxycodone 5mg daily prn severe pain Added docusate 100mg po bid Added senna 8.6mg po daily Admission HPI Per Admitting Provider Servando is a 78-year-old male with PMH of MGRS, liver cirrhosis, aortic stenosis, atrial fibrillation (on apixaban), prostate cancer, dyslipidemia, HTN, idiopathic gout, YENIFER, and heart failure. He presented via EMS on 06/06 after sustaining a ground-level fall while ambulating with his walker. He reports that the handle came off his walker while he was ambulating and that he fell onto a carpet. No head strike. No LOC. This occurred around 4:30 AM. He was not dizzy prior to falling. He endorses left hip pain on arrival. This pain has been ongoing for an extended period of time, but may have been exacerbated by the fall. No recent injuries to the hips, back, head, or neck prior to fall. The pain in his left lower back is described as constant. No radiation down the legs. He rates it 7/10 at present, but 10/10 at worst. Exacerbated by movements. He has been taking 1 oxycodone daily (5 mg tablet) for the pain, however he was recently prescribed hydrocodone 325 by his oncologist on Friday. Patient took all his regular morning medications today; his (Bhavna) is at the bedside and helps to manage his medicine at home. She reports that he was recently taken off Cartia XL and placed on metoprolol due to his ejection fraction. Last echocardiogram in the spring 2023. Patient follows with Dr. Faria for cardiology. She also notes that they recently increased his metoprolol on Friday by doubling the dosage from 50 mg daily to 100 mg daily. Patient reports he has been taken off Cartia XL in the past, and does not usually do well with it. He notes that he takes Lasix as needed, but does not normally take it daily; he reports he might of taken 23 doses over the past week. No recent change in diet, but patient's reports he has been eating less. He reports he does watch his salt intake. He takes Eliquis for atrial fibrillation, and reports that he last took it this morning at 7 AM. Regarding weight changes, patient reports he lost around 50 pounds over the past year. He reports no weight fluctuation in the past week. No sick contacts. No supplemental oxygen at home. No CPAP at night. Patient had recent bladder surgery 3 weeks ago, and endorses intermittent hematuria since then. Patient is a former smoker; quit in 2014. No recent alcohol use. On initial arrival, it was reported that patient's BP was 80/64; however the cuff was set to "" settings and reassessment revealed BP 118/100. Patient is tachycardic around 115 bpm at time of admission; vitals otherwise stable. ED course: NSS 500 mL IV Fentanyl citrate 25 mcg IV x 2 Magnesium sulfate 1 g IV ROS: Patient endorses lower back pain, ambulatory dysfunction, loss of appetite, and diarrhea, suprapubic tenderness, and hematuria. Patient denies fever, chills, night-sweats, dizziness/lightheadedness with movements, headache, changes in vision, chest pain, chest palpitations, SOB, cou gh, pleuritic CP, abdominal pain, N/V, burning with urination, dysuria, saddle anesthesia, or numbness or tingling going down the legs. Discharge Exam Constitutional WD/WN, vitals as above Respiratory normal respiratory effort, lungs clear to auscultation Cardiovascular Rate/Rhythm: regular rate and + irregularly irregular Heart Sounds: no murmur Extremities: + edema (trace leg edema bilat) Musculoskeletal no masses or bruising at site of back pain on left Psychiatric A+Ox3, euthymic affect Updated Medication List Medication Instructions Recorded Confirmed Type insulin syr/ndl U100 half juliocesar 0.3 #100 ea 06/15/19 05/27/24 History mL 31 gauge x 5/16" (BD Insulin Syringe Ultra-Fine (half unit)) pen needle, diabetic 31 gauge x #30 ea 06/15/19 05/27/24 History 5/16" (BD Ultra-Fine Short Pen Needle) apixaban 5 mg tablet (Eliquis) 5 mg PO BID #180 tabs 05/23/21 06/06/24 Rx dapagliflozin propanediol 10 mg 10 mg PO QAM 05/09/22 06/06/24 History tablet (Farxiga) solifenacin 10 mg tablet 10 mg PO QAM 05/09/22 06/06/24 History lorazepam 1 mg tablet 1 mg PO BID PRN Anxiety #60 tabs 05/23/22 06/06/24 Rx allopurinol 300 mg tablet 300 mg PO QAM #90 tabs 03/06/23 06/06/24 Rx furosemide 40 mg tablet 40 mg PO Q OTHER DAY PRN edema #45 11/05/23 06/06/24 Rx tabs irbesartan 150 mg tablet (Avapro) 150 mg PO HS 11/05/23 06/06/24 History metformin 1,000 mg tablet 1,000 mg PO BID 03/31/24 06/06/24 History rosuvastatin 40 mg tablet (Crestor) 40 mg PO QPM 04/29/24 06/06/24 History silodosin 8 mg capsule 8 mg PO QAM Urinary Retention 04/29/24 06/06/24 History oxycodone 5 mg tablet 5 mg PO DAILY PRN severe pain #30 05/12/24 06/06/24 Rx tabs metoprolol succinate 50 mg 100 mg (2 x 50 mg) PO DAILY #90 05/31/24 06/06/24 Rx tablet,extended release 24 hr tabs blood sugar diagnostic (FreeStyle 06/06/24 History Test strips) calcitonin (salmon) 200 1 spray NA DAILY #3.7 mL 06/10/24 Rx unit/actuation nasal spray docusate sodium 100 mg capsule 100 mg PO BID #60 caps 06/10/24 Rx lidocaine 5 % topical patch 1 patch transdermal QAM apply to 06/10/24 Rx site of pain in back #15 ea quetiapine 25 mg tablet 25 mg PO HS #30 tabs 06/10/24 Rx sennosides 8.6 mg capsule (senna) 8.6 mg PO DAILY #30 caps 06/10/24 Rx tramadol 50 mg tablet 50 mg PO Q8H PRN moderate pain 06/10/24 Rx (scale score 5-6) #14 tabs Hospital Stay Data Consultations 06/06/24 11:21 ED Decision to Admit Stat Diagnostic Imagining Performed 06/06/24 08:19 CT abd pelvis IV con only Stat CT cervical spine wo con Stat CT chest diagnostic w con Stat CT head/brain wo con Stat Pending Results Patient Have Any Pending Studies at Discharge: No Discharge Instructions Given to Patient (Per Discharging Provider) You can continue taking acetaminophen, lidocaine patch, calcitonin nasal spray for pain in your back. You can take tramadol for moderate pain and oxycodone for more severe pain as needed. You will need strengthening and balance rehab. Please continue follow up with your Urologist as you were found to have a stone in your bladder and had the recent bladder procedure for similar issues. You were treated for a UTI here but the antibiotics are now stopped. Total Time Total Time Spent Total Time Spent (In Minutes): 35 min Total Time Includes: Examination of the Patient, Discharge Planning and Medication Reconciliation Coding Level of Care Code 14669 INP/OBS DISCH >30 MIN Diagnoses Fall W19.XXXA Acute on chronic systolic heart failure I50.23 Sepsis A41.9 Atrial fibrillation with RVR I48.91 Type 2 diabetes mellitus E11.9 Hyponatremia E87.1
[2024-06-10] MEDS: traMADol HCL 50 MG TABLET PO PRN (16:18)
== END 2024-06-10 17:45 | DRG 291 ==
LOC: ED 07:45 → EDINP 11:39 → SUATTDRO 11:39 → 2S 14:28